=== PATIENT | male | born 1975 | race African-American/Black ===

== ENCOUNTER 2020-06-24 04:20 | Inpatient (IN) | payer BC, OTHER ==
--- OUTSIDE RECORDS SUMMARY | 2020-06-24 04:24 | XMS REPORT | Summary of Care ---
:1975 Author Organization [facility] - [facility] Address [address] [place] [address] Care Team Providers Name Role Phone Pcp, Patient Does Not Have A Primary Care Provider +[id number] Reason for Referral (Routine) Status Reason Specialty Diagnoses / Referred By Referred To Procedures Contact Contact New Request Pulmonary Disease Diagnoses COVID-19 virus infection Bruce Wilburn, Procedures Consult/Referral Post-COVID [facility] [address] [place] [address]. [address] [place] [phone] (Routine) Status Reason Specialty Diagnoses / Referred By Referred To Procedures Contact Contact Closed Internal Medicine Diagnoses COVID-19 virus infection Bruce Wilburn MD Procedures Discharge Follow-up: PCP PATIENT DOES NOT HAVE A PCP; 1 Week 301 [facility]. RT [address] [place] [id number] MRI/CAT Scan (STAT) Status Reason Specialty Diagnoses / Referred By Referred To Procedures Contact Contact New Request Diagnostic Diagnoses Positive D dimer Bruce Wilburn, Radiology Procedures CT CHEST PULMONARY ANGIOGRAM CT ANGIOGRAM CHEST [address] [place] [address]. RT [address] [place] [phone] Radiology Services (STAT) Status Reason Specialty Diagnoses / Referred By Referred To Procedures Contact Contact New Request Diagnostic Diagnoses Fever, unspecified fever cause Evelia Martinez Radiology Procedures XR CHEST 1 VW J, DO [address] [place] [address] Reason for Visit Reason Comments Shortness of Breath covid + Auth/Cert Status Reason Specialty Diagnoses / Referred By Referred To Procedures Contact Contact Emergency Medicine Diagnoses Shortness of breath [facility] Emergency Dept [address] [place] [address] Fax: Encounter Details Date Type Department Care Team Description 06/19/2020 - Hospital [facility] Intensive Care Sarwat Martinez DO [address] [place] [address] COVID-19 virus 06/20/2020 Encounter Unit Bruce Wilburn MD [address] [place] [address]. RT [address] [place] [address] infection [address] [place], [place] [id number] Allergies No Known Allergiesdocumented as of this encounter (statuses as of 06/20/2020) Medications Medication Sig Dispensed Refills Start Date End Date Status atorvastatin 40 mg Take 40 mg by 0 Active tablet mouth at bedtime. albuterol-ipratrop Inhale 2 4 g 0 06/20/2020 Active ium 20-100 Puffs 2 (two) 0 mcg/actuation times daily inhalerIndications for 10 days. : COVID-19 virus Can stop infection after 10 days ascorbic acid, Take 1 tablet 60 tablet 0 06/20/2020 Active vitamin C, 500 mg by mouth 2 0 tabletIndications: (two) times COVID-19 virus daily for 30 infection days. azithromycin 250 Take 1 tablet 1 Package 0 06/20/2020 Active mg by mouth tabletIndications: daily. Take COVID-19 virus 500 mg day 1, infection then 250 mg days 2 to 5. ergocalciferol, Take 1 4 capsule 1 06/27/2020 Act kimmie vitamin d2, 1,250 capsule by 0 mcg (50,000 unit) mouth weekly capsuleIndications for 60 days. : COVID-19 virus infection zinc sulfate 220 Take 1 30 capsule 0 06/20/2020 A ctive (50) mg capsule by 0 capsuleIndications mouth daily : COVID-19 virus for 30 days. infection dexAMETHasone 4 mg Decadron 8 mg 17 tablet 0 06/20/2020 Active tabletIndications: daily for 5 COVID-19 virus days. Then infection decadron 4 mg daily for 5 days. Then decadron 2 mg daily for 5 days. apixaban 2.5 mg Take 1 tablet 28 tablet 0 06/20/2020 Active tabletIndications: by mouth 2 COVID-19 (two) times daily. Stop after 2 weeks Indications: COVID-19 apixaban 2.5 mg Take 1 tablet 28 tablet 0 06/20/2020 Discontinued tabletIndications: by mouth 2 0 (Reorder) COVID-19 (two) times daily for 14 days. Stop after 2 weeks Indications: COVID-19 documented as of this encounter (statuses as of 06/20/2020) Active Problems Problem Noted Date Positive D dimer 06/20/2020 COVID-19 virus infection 06/19/2020 documented as of this encounter (statuses as of 06/20/2020) Social History Tobacco Use Types Packs/Day Years Used Date Never Assessed Sex Assigned at Date Recorded Not on file COVID-19 Exposure Response Date Recorded In the last month, have you been in contact with Yes 06/19/2020 4:45 PM CDT someone who was confirmed or suspected to have Coronavirus / COVID-19? documented as of this encounter Last Filed Vital Signs Vital Sign Reading Time Taken Comments Blood Pressure 123/80 06/20/2020 3:00 PM CDT Pulse 78 06/20/2020 3:00 PM CDT Temperature 37.2 C (99 F) 06/20/2020 12:00 PM CDT Respiratory Rate 20 06/20/2020 3:18 PM CDT Oxygen Saturation 98% 06/20/2020 3:18 PM CDT Inhaled Oxygen Concentration - - Weight 88.5 kg (195 lb 1.6 oz) 06/19/2020 6:57 PM CDT Height - - Body Mass Index - - documented in this encounter Discharge Summaries Bruce Wilburn MD - 06/20/2020 2:33 PM CDT [facility] - Hospitalist Discharge Summary ADMIT DATE: 06/19/2020 DISCHARGE DATE: 06/20/2020 ATTENDING MD: Bruce Wilburn MD PCP: PATIENT DOES NOT HAVE A PCP FINAL DIAGNOSIS: (the reason, after study, for admitting the patient to the hospital) COVID-19 virus infection HISTORY OF PRESENT ILLNESS 45 year-old male with pmh of hyperlipidemia who presents to the ED secondary to shortness of breath. About a week ago, patient initially had acute onset of lethargy, extreme fatigue, loss of smell/taste, and fever. The next day he was tested and found out that he had COVID-19. He continued to do supportive care but noticed symptoms nonproductive cough, body aches, intermittent wheezing, and headaches. He denies any rhinorrhea, sore throat. Due to the progressive shortness of breath, patient cameto the ED. HOSPITAL COURSE: Acute COVID infection and pneumonia, admitted to hospital and started on lovenox, steroids, abx, vitamin C, vitamin D and zinc. Patient feels better and not hypoxic on activity. Ok with discharge plan on eliquis 2.5 mg bid x 14 days. Patient at home takes lipitor for dyslipidemia. Recommended patient to f/u with PCP in 1 week Physical Exam NAD, lying comfortably Anicteric sclera, oral mucosa clear Good air entry b/l RRR, nl s1s2 Abd soft NT AAO, no gross deficits Spent greater than 35 mins on discharge including chart review, evaluating patient, discussing with patient and/or family, discussing with nursing and/or consultants, discharge summary, reconciling home medications and evaluating labs and imaging. SIGNIFICANT LAB/X-RAYS: LABS - reviewed pertinent labs as below: CBC BMP PT/INR WBC (10*3/L) Date Value 06/20/2020 4.19 (L) NA (mmol/L) Date Value 06/20/2020 135 No results found for: PT RBC (10*6/L) Date Value 06/20/2020 4.60 K (mmol/L) Date Value 06/20/2020 4.0 INR (no units) Date Value 06/19/2020 1.0 PLT (10*3/L) Date Value 06/20/2020 158 CALCIUM (mg/dL) Date Value 06/20/2020 8.4 (L) HGB (g/dL) Date Value 06/20/2020 13.1 CL (mmol/L) Date Value 06/20/2020 101 aPTT HCT (%) Date Value 06/20/2020 40.0 BUN (mg/dL) Date Value 06/20/2020 12 APTT Patient (Seconds) Date Value 06/19/2020 32 CREATININE (mg/dL) Date Value 06/20/2020 0.95 IMAGING - reviewed Hospital Encounter on 06/19/20 CT CHEST PULMONARY ANGIOGRAM Narrative Exam: CT CHEST PULMONARY ANGIOGRAM Clinical History: PE suspected, intermediate prob, positive D-dimer Comparison: Chest x-ray from June 19, 2020 Findings: The lower neck is unremarkable and the thyroid is symmetric. There is no evidence of supraclavicular, mediastinal, hilar, or axillary lymphadenopathy. A subcarinal lymph node measures 1.5 cm in short axis (4:112). Adequate opacification to evaluate for pulmonary embolism. No filling defects are seen in pulmonary artery branches to suggest presence of pulmonary embolism. The cardiac chambers and large vessels are within normal limits. Multifocal peripheral consolidative and groundglass opacities seen predominantly in the right lung are suggestive of Covid 19 pneumonia. The airways are patent. There is no evidence of pleural or pericardial effusion. No evidence of pneumothorax. Degenerative changes are seen in the spine without any suspicious focal lesions. Prominent mural thickening involving the lower esophagus (4:199 and 6:107). The visualized upper abdomen is unremarkable. Impression Impression: 1. Consolidative and groundglass peripheral opacities seen predominantly in the right lung suggest Covid 19 pneumonia. No evidence of pleural effusion or pneumothorax. Patient tested positive on June 14, 2020. 2. No evidence of pulmonary embolism. Nonspecific mural thickening of the lower esophagus. XR CHEST 1 VW Narrative PROCEDURE: CHEST, SINGLE VIEW . CLINICAL INDICATION: shortness of breath COMPARISON: None FINDINGS: Lungs: Ill-defined hazy streaky and patchy airspace opacities are seen throughout the lungs, more conspicuous on the right than. Pleura: No pleural effusion or pneumothorax is seen. The cardiomediastinal silhouette is normal in size. No acute bony abnormality. Impression Radiographic findings suspicious for atypical infection, including COVID-19 pneumonia. Disclaimer: Generally, the findings on chest imaging in COVID-19 are not specific, and overlap with other infections, including influenza, H1N1, SARS and MERS. According to the Centers for Disease Control (CDC) and recent statement of the [employer], viral testing remains the only specific method of diagnosis. Confirmation with the viral test is required, even if radiologic findings are suggestive of COVID-[address] Preliminary Report Dictated by Resident: Sukhwinder Jacinto I, Yolette Lamas MD., have reviewed this study and agree with the above report. FUNCTIONAL STATUS: fully ambulatory DISCHARGE CONDITION: fair COGNITIVE STATUS: cognitively intact DIET: regular ACTIVITY: as tolerated DISCHARGE MEDICATIONS: Current Discharge Medication List START taking these medications Details albuterol-ipratropium (COMBIVENT RESPIMAT) 2 Puffs Inhale 2 Puffs 2 (two) times daily. Can stop after 10 days Qty: 4 g, Refills: 0 Start date: 06/20/2020, End date: 06/30/2020 Associated Diagnoses: COVID-19 virus infection apixaban (ELIQUIS) 2.5 mg Take 2.5 mg by mouth 2 (two) times daily. Stop after 2 weeks Qty: 28 tablet, Refills: 0 Start date: 06/20/2020, End date: 07/04/2020 Associated Diagnoses: COVID-19 virus infection ascorbic acid (vitamin C) (VITAMIN C) 500 mg Take 500 mg by mouth 2 (two) times daily. Qty: 60 tablet, Refills: 0 Start date: 06/20/2020, End date: 07/20/2020 Associated Diagnoses: COVID-19 virus infection azithromycin (ZITHROMAX) 250 mg Take 250 mg by mouth daily. Take 500 mg day 1, then 250 mg days 2 to5. Qty: 1 Package, Refills: 0 Start date: 06/20/2020 Associated Diagnoses: COVID-19 virus infection dexAMETHasone 4 mg tablet Decadron 8 mg daily for 5 days. Then decadron 4 mg daily for 5 days. Then decadron 2 mg daily for 5 days. Qty: 17 tablet, Refills: 0 Start date: 06/20/2020 Associated Diagnoses: COVID-19 virus infection ergocalciferol (vitamin d2) (CALCIFEROL) 50,000 Units Take 50,000 Units by mouth weekly. Qty: 4 capsule, Refills: 1 Start date: 06/27/2020, End date: 08/26/2020 Associated Diagnoses: COVID-19 virus infection zinc sulfate (ORAZINC) 220 mg Take 220 mg by mouth daily. Qty: 30 capsule, Refills: 0 Start date: 06/20/2020, End date: 07/20/2020 Associated Diagnoses: COVID-19 virus infection CONTINUE these medications which have NOT CHANGED Details atorvastatin (LIPITOR) 40 mg Take 40 mg by mouth at bedtime. PATIENT EDUCATION PROVIDED: medications DISCHARGE: home self care documented in this encounter Discharge Instructions AttachmentsThe following attachments cannot be sent through Care Everywhere. Coronavirus Disease 2019, Caring for Yourself and Others (Maldivian)Albuterol inhalation aerosol (Maldivian)Ergocalciferol, Vitamin D2 tablets or capsules (Maldivian)Ascorbic Acid, Vitamin C tablet (Maldivian)Azithromycin tablets (Maldivian) Zinc Salts tablets or capsules (Maldivian)Dexamethasone tablets (Maldivian)Apixaban oral tablets (Maldivian)documented in this encounter Progress Notes Francisco Ziegler RN - 06/20/2020 4:34 PM CDT Care Management Discharge Disposition Note (DCDN) 5-2-1 Interventions: Clear discharge plan 5-2-1 Providers: Geotechnical Operating Engineer/Cook Apprentice 5-2-1 Patient Capacity Improvements: Avoidance of adverse events/readmission Discharge Plan for ongoing care and services: Patient Choice completed for referred services: Discussed with patient/patients family involved in decision making: Patient or family caregiver understands, and agrees with discharge plan. Discharge Plan: DME location: Other DME location: Durable Medical Equipment: Home Health location: Discharge location(s): Community resources/referrals made or provided to patient: Resources/Referrals: Mental Status: Alert & Oriented to Person,Place & Time Psychosocial issues and/or concerns resulting in patient being a high risk for re-admission: Manage ADL indepentdly: Discussed with patient/patients family involved in decision making: Primary Family/Support Person Name and Phone Number: Living Arrangement: Home Other living arrangement: Address of living arrangement: [address] [place] [address] Funding Resources: Commercial [facility] patient been [facility] Nursing informed of discharge plan: CHP referral sent? CM medication request completed (if appropriate): PCP: Transportation: Private Vehicle Prior authorization obtained for ambulance: Authorization number: CPT code: Discharge Medications Will the patient be able to obtain his medications? Does the patient have transportation to to obtain the prescription medications? CM Medication Request completed (if appropriate): Name of RN informed: Dian Expected discharge date: 06/20/2020 Time: Morning [10] Additional Information: CM/SW Name & Contact number: Francisco Ziegler RN Ph. Francisco Ziegler RN, BSN [facility] Geotechnical Operating Engineer O [phone] The following information has been provided to the facility noted above: reason for the patient discharge or transfer; patients physical and psychosocial status; summary of care, treatment, servicesprovided to patient; and the patient progress toward goals. Francisco Franco RN - 06/20/2020 3:18 PM CDTPt provided w/ Eliquis free 30 day coupon and $10 copay card. Francisco Ziegler RN, BSN [facility] Geotechnical Operating Engineer O [phone] Denise Scott LMSW - 06/20/2020 11:24 AM CDTSummary: Inpatient Scheduling RETAIL SERVICE TECHNICIAN spoke with patient prior to discharge to assist with scheduling hospital follow up appointments. Pt reports that he is followed by [facility] and doesn't really have one particular doctor. Pt reports that their clinic runs in a "pool" and depending on what the need is, is who they will put thepatient with to see. ALISTAIR discussed with patient that [facility] is recommending that he follow up with Primary Care within a week of his discharge which would most likely be via TeleHealth due to COVID status. Pt reports he will contact the clinic and get the appointment scheduled. Declines assistance in scheduling at this time. Will document in referral once it is made available. Denise Gutierrez LMSW Cook Apprentice - Community [facility] Out[facility] Bianca Ramos - 7th floor Office: [phone] (Not for patient use) [email or web address] Feliciano Rai RT - 06/20/2020 10:36 AM CDTEXERTION TEST O2 Saturation at Rest on Room Air = 96% O2 Saturation being Exerted on Room Air = 96% Francisco Franco RN - 06/20/2020 9:27 AM CDTCare Management Social Functional Assessment Patient Name: Jaydon Woodard Age: [age] year old Sex: male Previous admit date: N/A Current diagnosis and co-morbidities: COVID-19 Virus infection Readmission Questions: Was patient discharged from any acute care hospital within the last 30 days: No Social Functional Assessment: Primary language spoken/preferred: Maldivian Mental Status: Alert & Oriented to Person,Place & Time Information given by: Self Patient's support system: Spouse Name and number of support system: MISSY WOODARD spouse [phone] Primary Tugboat Dispatcher: Spouse MPOA: Same as support system Living Arrangement: Home Address of living arrangement : [address] [place] [address] Persons living in home: Same as support system Barriers to returning home: None Baseline functional status- ambulation: Independent Functional status-baseline personal care: Independent Baseline functional status- driving: Independent Baseline functional status- grocery shopping: Independent Functional status-baseline housekeeping: Independent Functional status-baseline meal prep: Independent Current functional status same as prior: Yes Do you have a PCP?: Yes Name of PCP: noah garcia [facility] Agency: No Provider Services: No DME Company: No Equipment: None Hemodialysis: No Funding Resources: Commercial Prescription coverage plan: Commercial Pharmacy where meds are filled: ([facility]) Anticipated services prior to disharge: Continue Medical Eval Expected mode of discharge transportation: Same as support system Additional info required for discharge planning: Pending medical evaluation Recommended discharge plan: Home SFA Complete: Social Functional Assessment complete: Yes Alcohol Use Screening (AUDIT-C) How often do you have a drink containing alcohol?: Never SCORE: 0 Role of Care Management explained. Yes Any issues or concerns with obtaining/affording your medications at home: no. Are you or your support system able to corn picker medications at discharge: yes. Describe: Francisco Ziegler RN, BSN [facility] ADC Geotechnical Operating Engineer O [phone] . documented in this encounter H&P Notes Marley Basilio MD - 06/19/2020 8:34 PM CDT MEDICINE ADC ADMIT H&P Date of Service: 06/19/2020 CHIEF COMPLAINT: shortness of breath History of Present Illness 45 year-old male with pmh of hyperlipidemia who presents to the ED secondary to shortness of breath. About a week ago, patient initially had acute onset of lethargy, extreme fatigue, loss of smell/taste, and fever. The next day he was tested and found out that he had COVID-19. He continued to do supportive care but noticed symptoms nonproductive cough, body aches, intermittent wheezing, and headaches. He denies any rhinorrhea, sore throat. Due to the progressive shortness of breath, patient cameto the ED. PAST MEDICAL HISTORY 1. HLD 2. Childhood asthma Past Surgical History 1. Right eye surgery s/p prosthesis Past Family History Mom (alive, 63): Diabetes Dad (, 50s): unknown ALLERGIES No Known Allergies MEDICATIONS No current facility-administered medications on file prior to encounter. Current Outpatient Medications on File Prior to Encounter Medication Sig Dispense Refill atorvastatin 40 mg tablet Take 40 mg by mouth at bedtime. SOCIAL HISTORY Social History Socioeconomic History Marital status: Spouse name: Not on file Number of children: Not on file Years of education: Not on file Highest education level: Not on file Occupational History Not on file Social Needs Financial resource strain: Not on file Food insecurity Worry: Not on file Inability: Not on file Transportation needs Medical: Not on file Non-medical: Not on file Tobacco Use Smoking status: Not on file Substance and Sexual Activity Alcohol use: Not on file Drug use: Not on file Sexual activity: Not on file Lifestyle Physical activity Days per week: Not on file Minutes per session: Not on file Stress: Not on file Relationships Social connections Talks on phone: Not on file Gets together: Not on file Attends mandaen service: Not on file Active member of club or organization: Not on file Attends meetings of clubs or organizations: Not on file Relationship status: Not on file Intimate partner violence Fear of current or ex partner: Not on file Emotionally abused: Not on file Physically abused: Not on file Forced sexual activity: Not on file Other Topics Concern Not on file Social History Narrative Not on file Review of Systems Constitutional: Positive for chills, fatigue and fever. Negative for activity change, appetite change, diaphoresis and unexpected weight change. HENT: Negative. Eyes: Positive for visual disturbance (right eye). Respiratory: Positive for cough, chest tightness and shortness of breath. Negative for apnea, choking, wheezing and stridor. Breasts: Negative. Cardiovascular: Negative. Gastrointestinal: Negative. Genitourinary: Negative. Musculoskeletal: Positive for myalgias. Negative for arthralgias, back pain, gait problem and joint swelling. Skin: Negative. Neurological: Positive for weakness and headaches. Negative for dizziness, tremors, seizures, syncope, facial asymmetry, speech difficulty, light- headedness and numbness. Psychiatric/Behavioral: Negative. Endocrine: Endocrine negative PHYSICAL EXAMINATION Vitals: 06/19/20 1800 06/19/20 1827 06/19/20 1857 06/19/20 1900 BP: 118/78 107/68 Pulse: 100 86 Resp: 20 25 Temp: 38.7 C (101.6 F) 36.3 C (97.3 F) TempSrc: Oral SpO2: 95% 96% Weight: 88.5 kg (195 lb 1.6 oz) Physical Exam Constitutional: He is oriented to person, place, and time. He appears well- developed and well-nourished. No distress. HENT: Head: Normocephalic and atraumatic. Right Ear: External ear normal. Left Ear: External ear normal. Mouth/Throat: No oropharyngeal exudate. Eyes: Pupils are equal, round, and reactive to light. Conjunctivae and EOM are normal. No scleral icterus. Neck: Normal range of motion. Cardiovascular: Normal rate and regular rhythm. Pulmonary/Chest: Effort normal and breath sounds normal. No respiratory distress. He exhibits tenderness. Abdominal: Soft. He exhibits no distension. There is no guarding. Musculoskeletal: Normal range of motion. General: No edema. Neurological: He is alert and oriented to person, place, and time. Skin: Skin is warm and dry. No rash noted. No erythema. No pallor. Psychiatric: He has a normal mood and affect. His behavior is normal. Judgment and thought content normal. LABS - reviewed pertinent labs as below: Reviewed IMAGING - reviewed, pertinent results as below: PROCEDURE: CHEST, SINGLE VIEW . CLINICAL INDICATION: shortness of breath COMPARISON: None FINDINGS: Lungs: Ill-defined hazy streaky and patchy airspace opacities are seen throughout the lungs, more conspicuous on the right than. Pleura: No pleural effusion or pneumothorax is seen. The cardiomediastinal silhouette is normal in size. No acute bony abnormality. IMPRESSION Radiographic findings suspicious for atypical infection, including COVID-19 pneumonia. Disclaimer: Generally, the findings on chest imaging in COVID-19 are not specific, and overlap with other infections, including influenza, H1N1, SARS and MERS. According to the Centers for Disease Control (CDC) and recent statement of the [employer], viral testing remains the only specific method of diagnosis. Confirmation with the viral test is required, even if radiologic findings are suggestive of COVID-[address] Preliminary Report Dictated by Resident: Sukhwinder Jacinto I, Yolette Lamas MD., have reviewed this study and agree with the above report. ASSESSMENT/PLAN Jaydon Woodard is a 45 year old male with PMH as listed above, admitted to the hospital with: 1. Acute respiratory distress: likely secondary to COVID-19 infection. -- Oxygen supplementation -- Treat underlying condition 2. COVID pneumonia: -- Oxygen supplementation as needed -- Will order dexamethasone -- Will order supplement ascorbic acid, zinc -- Continue antibiotics for possible superimposed pneumonia (awaiting procalcitonin) -- Coagulable work-up ordered in order to evaluate for possible coagulability. Added weight based lovenox due to elevated d dimer. -- Will consult ID for possible use of remdesivir -- Supportive therapy (eg, antitussive agent, bronchodilator inhaler) -- Will encourage proning -- Will order incentive spirometry -- COVID isolation precaution 3. Hyperlipidemia: -- Will resume outpatient lipid medication Prophylaxis: DVT- enoxaparin Code Status: addressed: FC documented in this encounter ED Notes Nan Jiménez RN - 06/19/2020 4:37 PM CDTPatient reports he tested + for covid 06/15/2020; states he is now becoming more SOB. Patient walked in place for 45 seconds and O2 sats decreased to 84%. Evelia Posada, - 06/19/2020 4:32 PM CDT [facility] Emergency Department Note Patient Name: Jaydon Woodard Date of : 1975 45 year old male Treatment Room: [facility] Primary Care Physician: PATIENT DOES NOT HAVE A PCP Patient Escorted by: Self [9] Mode of Arrival: Personal means [1] EMS Treatment Prior to ED Arrival: Travel and Exposure Screening: Symptoms Does patient have any of these symptoms?: (not recorded) Exposure Screening Has patient had contact with someone with a communicable disease in the last month?: (not recorded) Diseases exposed to:: (not recorded) Is Patient ?: (not recorded) Exposure Date: (not recorded) Chief Complaint: Chief Complaint Patient presents with Shortness of Breath covid + History of Present Illness: Patient presents for eval for cough and sob for several days. Started feeling bad on Thursday - today is Thursday. On went and had a covid test and was found to be positive on Thursday. Has been staying at home and quarantining since. No n/v. No diarrhea. 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 Does not smoke. No h/o asthma or dm. Does take cholesterol meds. No chest pain. Here for eval. Past Medical History/Immunizations: History reviewed. No pertinent past medical history. Tetanus received in last 5 years: Unknown Allergies: No Known Allergies Past Social History: Substance & Sexual Activity No substance use or sexual activity history on file. Past Surgical History: History reviewed. No pertinent surgical history. Review of Systems: Review of Systems Constitutional: Positive for fever. Negative for chills. Respiratory: Positive for cough and shortness of breath. Cardiovascular: Negative for chest pain. Gastrointestinal: Negative for abdominal pain, nausea and vomiting. Genitourinary: Negative for dysuria. Musculoskeletal: Positive for myalgias. Negative for neck pain and neck stiffness. Neurological: Negative for dizziness. Psychiatric/Behavioral: Negative for agitation. Endocrine: Negative for goiter. Physical Exam: ED Triage Vitals [06/19/20 1639] Weight 83.9 kg (185 lb) Actual or estimated Estimated by patient/family report Height BP (!) 138/94 Pulse 110 Resp 22 Temp 39.8 C (103.7 F) Temp source Oral SpO2 94 % Measured on Room air Physical Exam Vitals signs and nursing note reviewed. Constitutional: Appearance: Normal appearance. He is normal weight. HENT: Head: Normocephalic and atraumatic. Neck: Musculoskeletal: Normal range of motion and neck supple. Cardiovascular: Rate and Rhythm: Regular rhythm. Tachycardia present. Pulses: Normal pulses. Pulmonary: Effort: Pulmonary effort is normal. No respiratory distress. Breath sounds: No wheezing. Abdominal: General: Abdomen is flat. There is no distension. Palpations: There is no mass. Tenderness: There is no abdominal tenderness. There is no guarding. Musculoskeletal: Normal range of motion. Skin: General: Skin is warm and dry. Neurological: General: No focal deficit present. Mental Status: He is alert. Radiology: Hospital Encounter on 06/19/20 XR CHEST 1 VW Narrative PROCEDURE: CHEST, SINGLE VIEW . CLINICAL INDICATION: shortness of breath COMPARISON: None FINDINGS: Lungs: Ill-defined hazy streaky and patchy airspace opacities are seen throughout the lungs, more conspicuous on the right than. Pleura: No pleural effusion or pneumothorax is seen. The cardiomediastinal silhouette is normal in size. No acute bony abnormality. Impression Radiographic findings suspicious for atypical infection, including COVID-19 pneumonia. Disclaimer: Generally, the findings on chest imaging in COVID-19 are not specific, and overlap with other infections, including influenza, H1N1, SARS and MERS. According to the Centers for Disease Control (CDC) and recent statement of the [employer], viral testing remains the only specific method of diagnosis. Confirmation with the viral test is required, even if radiologic findings are suggestive of COVID-[address]. Preliminary Report Dictated by Resident: Sukhwinder Jacinto I, Yolette Lamas MD., have reviewed this study and agree with the above report. Lab Results (24h): Recent Results (from the past 24 hour(s)) TROPONIN I Collection Time: 06/19/20 4:49 PM Result Value Ref Range TROPONIN I <0.012 <=0.034 ng/mL COMP. METABOLIC PANEL ([id number]) Collection Time: 06/19/20 4:49 PM Result Value Ref Range NA 135 135 - 145 mmol/L K 4.1 3.5 - 5.0 mmol/L CL 95 (L) 98 - 108 mmol/L CO2 TOTAL 28 23 - 31 mmol/L AGAP 12 2 - 16 BUN 13 7 - 23 mg/dL GLUCOSE 114 (H) 70 - 110 mg/dL CREATININE 1.20 0.60 - 1.25 mg/dL TOTAL BILI 0.7 0.1 - 1.1 mg/dL CALCIUM 9.4 8.6 - 10.6 mg/dL T PROTEIN 8.4 (H) 6.3 - 8.2 g/dL ALBUMIN 4.6 3.5 - 5.0 g/dL ALK PHOS 65 34 - 122 U/L ALTv 46 5 - 50 U/L AST(SGOT) 50 (H) 13 - 40 U/L eGFR Calculation (Non-) 64.9 mL/min/1.73m2 eGFR Calculation () 78.7 mL/min/1.73m2 LIPASE, SERUM Collection Time: 06/19/20 4:49 PM Result Value Ref Range LIPASE 155 0 - 220 U/L CBC WITH DIFF Collection Time: 06/19/20 4:49 PM Result Value Ref Range WBC 4.66 4.20 - 10.70 10*3/L RBC 5.27 4.26 - 5.52 10*6/L HGB 14.8 12.2 - 16.4 g/dL HCT 45.7 38.4 - 49.3 % MCV 86.7 81.7 - 95.6 fL MCH 28.1 26.1 - 32.7 pg MCHC 32.4 31.2 - 35.0 g/dL RDW-SD 38.7 38.5 - 51.6 fL RDW-CV 12.1 12.1 - 15.4 % PLT 156 150 - 328 10*3/L MPV 10.8 9.8 - 13.0 fL NRBC/100 WBC 0.0 0.0 - 10.0 /100 WBCs NRBC x10^3 <0.01 10*3/L GRAN MAT (NEUT) % 67.6 % IMM GRAN % 0.20 % LYMPH % 26.4 % MONO % 5.8 % EOS % 0.0 % BASO % 0.0 % GRAN MAT x10^3(ANC) 3.15 1.99 - 6.95 10*3/uL IMM GRAN x10^3 <0.03 0.00 - 0.06 10*3/uL LYMPH x10^3 1.23 1.09 - 3.23 10*3/uL MONO x10^3 0.27 (L) 0.36 - 1.02 10*3/uL EOS x10^3 <0.03 (L) 0.06 - 0.53 10*3/uL BASO x10^3 <0.03 0.01 - 0.09 10*3/uL EKG: Nsr, no stemi, QTc 437, rate 96 Orders and Treatments: Orders Placed This Encounter Procedures XR CHEST 1 VW TROPONIN I COMP. METABOLIC PANEL ([id number]) LIPASE, SERUM CBC WITH DIFF Orders Placed This Encounter Medications acetaminophen (TYLENOL) tablet 1,000 mg NaCl 0.9% (NS) bolus infusion 1,000 mL ED COURSE patient presents for eval for cough, body aches and sob getting worse since Thursday - today is Thursday. No chest pain. Subjective fevers. Had positive covid test on (results on Thursday). Poor appetite today. Does not smoke. No h/o asthma. Febrile upon arrival. Slight tachycardic. Hypoxic with ambulation at 84%. Lungs clear. Is known covid +. Will obtain CXR and ekg. Will check labs. Will give IV fluids and Tylenol. Will need admission later on. 1800 - labs ok. CXR shows covid. Will admit for continued management. MDM: Coding Scoring Tools: No data recorded Diagnosis/Impression: ICD-10-CM ICD-9-CM 1. Fever, unspecified fever cause R50.9 780.60 Disposition/Condition: ED Disposition ED Disposition Condition Comment Admit - Inpatient Is this patient COVID positive or a patient under investigation (PUI)?: Yes Treatment Team: [facility] [[id number]] Primary reason for admission: COVID-19 virus infection [[id number]] Is (or was) this a planned re-admission?: No My concerns are:: hypoxia My concerns are:: need for IV therapies My concerns are:: risk of mortality My concerns are:: risk of morbidity My concerns are:: respiratory insufficiency The risks to the patient are: morbidity or mortality in the short term Expected length of stay: At least 2 midnights Expected discharge disposition: Home Self Care Certification: I certify the inpatient services are medically necessary and in accordance with Medicare regulations. Discharge Medications: Patient's Medications No medications on file Follow-up: Electronically signed by: Evelia Martinez DO 06/19/2020 4:48 PM documented in this encounter Miscellaneous Notes Nursing Note - Meena Simmons RN - 06/20/2020 4:52 PM CDTPt is discharged home. All discharge and follow up instructions given, and explained. Pt verbalized the understanding of instructions. Prescriptions given to the patient.Pt left in wheelchair accompanied by Nurse social and human services assistant. Pt will be picked up by his . Pt took all his belonging. IV removed, and tel removed. are Plan - Dian Wynn RN - 06/20/2020 3:08 PM CDT Problem: Discharge Planning Goal: Absence of venous thromboembolism Outcome: Adequate for discharge Goal: Adequate for discharge Outcome: Adequate for discharge Goal: Effective communication Outcome: Adequate for discharge Problem: Pain Goal: Control of pain at or below patient's documented comfort goal Outcome: Adequate for discharge Goal: Reduction in pain sensation Outcome: Adequate for discharge Problem: Respiratory Function - Impaired Goal: Able to cough effectively Outcome: Adequate for discharge Goal: Adequate oxygenation Outcome: Adequate for discharge Goal: Adequate work of breathing Outcome: Adequate for discharge Goal: Patent airway Outcome: Adequate for discharge are Plan - Chelle Beckford RN - 06/20/2020 6:17 AM CDTInstruction given on Incentive Spirometer use, demonstrated proper use of device. D Nurse Note - Maria De Jesus Torres RN - 06/19/2020 6:35 PM CDTReport given to Trista WYNNE with ICU documented in this encounter Plan of Treatment Name Type Priority Associated Diagnoses Date/Ti me BLOOD CULTURE SCREEN LAB [facility] 020 10:51 PM CDT URINE CULTURE LAB Routine 06/20/2020 4: 30 PM CDT BLOOD CULTURE SCREEN LAB Routine 020 12:21 PM CDT Name Type Priority Associated Diagnoses Order S chedule BLOOD CULTURE SCREEN LAB [facility] fo r 1 Occurrences sta rting 06/19/2020 unti l 06/19/2020 URINE CULTURE LAB Routine ONCE for 1 Occurrences sta rting 06/19/2020 unti l 06/19/2020 EKG-12 LEAD ROUTINE HEART STATION Routine ONCE fo r 1 Occurrences sta rting 06/19/2020 unti l 06/19/2020 COMP. METABOLIC LAB Routine EVERY MORNIN G AT 0500 PANEL ([id number]) for 3 Days sta rting 06/20/2020 unti l 06/22/2020, 1 completed CBC WITH DIFF LAB Routine EVERY MORNING AT 0500 for 3 Days star ting 06/20/2020 unti l 06/22/2020, 1 completed ACUTE CARE VENOUS LAB Routine EVERY MORN ING AT 0500 BLOOD GAS for 1 Days star ting 06/20/2020 unti l 06/20/2020 BLOOD CULTURE SCREEN LAB Routine ONCE fo r 1 Occurrences sta rting 06/20/2020 unti l 06/20/2020 Health Maintenance Due Date Last Done Comments Depression Screening 1985 DTaP,Tdap,and Td Vaccines (1 - 02/20/1992 Tdap) INFLUENZA VACCINE (#1) 2020 Colorectal Cancer Screening 2023 PNEUMOCOCCAL 0-64 YEARS COMBINED Aged Out No longer eligible based on SERIES patient's age to complete this topic documented as of this encounter Procedures Procedure Name Priority Date/Time Associated Comments Diagnosis URINALYSIS Routine 06/20/2020 4:30 Results for this PM CDT procedure are i n the results section. BLOOD CULTURE SCREEN Routine 06/20/2020 12:21 PM CDT AC PANEL 21 + LACTIC STAT 06/20/2020 12:20 Res ults for this ACID PM CDT procedure are i n the results section. CT CHEST PULMONARY STAT 06/20/2020 10:13 Positive D dimer R esults for this ANGIOGRAM AM CDT procedure are i n the results section. N-TERMINAL PRO-BNP Routine 06/20/2020 3:27 Resul ts for this AM CDT procedure are i n the results section. CBC WITH DIFF Routine 06/20/2020 3:27 Results fo r this AM CDT procedure are i n the results section. COMP. METABOLIC PANEL Routine 06/20/2020 3:27 Re sults for this ([id number]) AM CDT procedure are i n the results section. TROPONIN I Routine 06/20/2020 3:27 Results for this AM CDT procedure are i n the results section. BLOOD CULTURE SCREEN [facility] 06/19/2020 10:51 PM CDT PROCALCITONIN [facility] 06/19/2020 10:50 Results fo r this PM CDT procedure are i n the results section. C-REACTIVE PROTEIN [facility] 06/19/2020 10:50 Resul ts for this PM CDT procedure are i n the results section. LACTATE DEHYDROGENASE [facility] 06/19/2020 10:50 Re sults for this PM CDT procedure are i n the results section. ACUTE CARE VENOUS [facility] 06/19/2020 10:49 Result s for this BLOOD GAS PM CDT procedure are i n the results section. ACTIVATED PARTIAL [facility] 06/19/2020 6:14 Result s for this THRMPLAS ERIK PM CDT procedure are i n the results section. D-DIMER [facility] 06/19/2020 6:14 Results for this PM CDT procedure are i n the results section. PROTHROMBIN TIME / [facility] 06/19/2020 6:14 Resul ts for this INR PM CDT procedure are i n the results section. XR CHEST 1 VW STAT 06/19/2020 5:03 Fever, unspecified Resu lts for this PM CDT fever cause procedure are i n the results section. N-TERMINAL PRO-BNP Add-on 06/19/2020 4:49 Resul ts for this PM CDT procedure are i n the results section. GLYCOSYLATED [facility] Add-On 06/19/2020 4:49 Results for this HEMOGLOBIN (A1C) PM CDT procedure a re in the results section. CBC WITH DIFF STAT 06/19/2020 4:49 Fever, unspecified Resu lts for this PM CDT fever cause procedure are i n the results section. SEDIMENTATION RATE [facility] Add-On 06/19/2020 4:49 Resul ts for this PM CDT procedure are i n the results section. LIPID PANEL [facility] Add-On 06/19/2020 4:49 Results for this ([id number])(TOTAL PM CDT procedure are in CHOLESTEROL, the results TRIGLYCERIDES, HDL) section. COMP. METABOLIC PANEL STAT 06/19/2020 4:49 Fever, unspecif ied Results for this ([id number]) PM CDT fever cause procedure are i n the results section. THYROID STIMULATING [facility] Add-On 06/19/2020 4:49 Resu lts for this HORMONE PM CDT procedure are i n the results section. TROPONIN I STAT 06/19/2020 4:49 Fever, unspecified Resul ts for this PM CDT fever cause procedure are i n the results section. FERRITIN SERUM [facility] Add-On 06/19/2020 4:49 Results f or this PM CDT procedure are i n the results section. MAGNESIUM [facility] Add-On 06/19/2020 4:49 Results for this PM CDT procedure are i n the results section. LIPASE STAT 06/19/2020 4:49 Fever, unspecified Resul ts for this PM CDT fever cause procedure are i n the results section. URIC ACID [facility] Add-On 06/19/2020 4:49 Results for this PM CDT procedure are i n the results section. CREATINE KINASE Add-on 06/19/2020 4:49 Results for this PM CDT procedure are i n the results section. PHOSPHORUS [facility] Add-On 06/19/2020 4:49 Results for this PM CDT procedure are i n the results section. EKG-12 LEAD STAT 06/19/2020 4:47 PM CDT CONSENT/REFUSAL FOR Routine 06/19/2020 4:31 DIAGNOSIS AND PM CDT TREATMENT NOTICE OF PRIVACY Routine 06/19/2020 4:30 PRACTICES PM CDT documented in this encounter Results URINALYSIS (06/20/2020 4:30 PM CDT) Pathologist Sig nature APPEARANCE Clear Clear [facility] COLOR Yellow Yellow [facility] PH 6.0 4.8 - 8.0 [facility] SP GRAVITY 1.042 (H) 1.003 - 1.030 [facility] GLU U QUAL Normal Normal [facility] BLOOD Negative Negative [facility] KETONES Negative Negative [facility] PROTEIN 30 mg/dL (A) Negative [facility] UROBILIN Normal Normal [facility] BILIRUBIN Negative Negative [facility] NITRITE Negative Negative [facility] LEUK DEENA Negative Negative [facility] RBC/HPF 4 (H) 0 - 3 HPF [facility] WBC/HPF 1 0 - 5 HPF [facility] BACTERIA Negative Negative [facility] Specimen Urine - URINE, CLEAN CATCH Performing Organization Address [facility] Phone Number [facility] CLIA: [id number] [place] [address] AC PANEL 21 + LACTIC ACID (06/20/2020 12:20 PM CDT) [facility] PH 7.38 7.32 - 7.42 [facility] PCO2 MARCI 39 (L) 41 - 51 mmHg [facility] PO2 MARCI 28 25 - 40 mmHg [facility] HCO3 MARCI 22 (L) 24 - 28 mEq/L [facility] AC VBE(BEAKER) -2.6 mEq/L [facility] THB MARCI 14.7 13.5 - 18.0 g/dL [facility] %O2HB MARCI 53.8 52.0 - 63.0 % [facility] %COHB MARCI 1.8 (H) 0.0 - 1.5 % [facility] %METHB MARCI 0.0 (L) 0.4 - 1.5 % [facility] VOL%O2 MARCI 11.1 6.0 - 12.0 % [facility] NA 136 135 - 145 mmol/L [facility] K+ 3.9 3.5 - 5.0 mmol/L [facility] AC CA IONZ 4.10 (L) 4.50 - 5.30 mg/dL [facility] GLUCOSE 123 (H) 70 - 110 mg/dL [facility] LACTIC ACID 2.18 mmol/L [facility] Specimen Blood - ARM, LEFT Performing Organization Address [facility] Phone Number [facility] CLIA: [id number] [place] [id number] LABORATORY [address] [facility] [address] CHEST PULMONARY ANGIOGRAM (06/20/2020 10:13 AM CDT) Specimen Impressions Performed At Impression: PACS/VR/DOSE 1. Consolidative and groundglass peripheral opacitie s seen predominantly in the right lung suggest Covid 19 pneum onia. No evidence of pleural effusion or pneumothorax. Patient tested positive on June 14, 2020. 2. No evidence of pulmonary embolism. Nonspecific mural thickening of the lower esophagus. Narrative Performed At Exam: CT CHEST PULMONARY ANGIOGRAM PACS/VR/DOSE Clinical History: PE suspected, intermed iate prob, positive D-dimer Comparison: Chest x-ray from June 19, 2020 Findings: The lower neck is unremarkable and the t hyroid is symmetric. There is no evidence of supraclavicular, mediastinal , hilar, or axillary lymphadenopathy. A subcarinal lymph node measures 1.5 cm in short axis (4:112). Adequate opacification to evaluate for p ulmonary embolism. No filling defects are seen in pulmonary artery bra nches to suggest presence of pulmonary embolism. The cardiac chambers and large vessels are within normal limits. Multifocal peripheral consolidative and groundglass opacities seen predominantly in the right lung are suggestive of Covi d 19 pneumonia. The airways are patent. There is no evidence of pleural or pericardial effusion. No evidence of pneumothorax. Degenerative changes are seen in the spi ne without any suspicious focal lesions. Prominent mural thickening invo lving the lower esophagus (4:199 and 6:107). The visualized upper abdomen is unremarkable. Procedure Note [facility], Radiant Results Inft User - 2019 11:11 AM CDT Exam: CT CHEST PULMONARY ANGIOGRAM Clinical History: PE suspected, intermed iate prob, positive D-dimer Comparison: Chest x-ray from June 19, 2020 Findings: The lower neck is unremarkable and the t hyroid is symmetric. There is no evidence of supraclavicular, mediastinal , hilar, or axillary lymphadenopathy. A subcarinal lymph node measures 1.5 cm in short axis (4:112). Adequate opacification to evaluate for p ulmonary embolism. No filling defects are seen in pulmonary artery bra nches to suggest presence of pulmonary embolism. The cardiac chambers and large vessels are within normal limits. Multifocal peripheral consolidative and groundglass opacities seen predominantly in the right lung are sugg estive of Covid 19 pneumonia. The airways are patent. There is no evidence of pleural or pericardial effusion. No evidence of pneumothorax. Degenerative changes are seen in the spi ne without any suspicious focal lesions. Prominent mural thickening invo lving the lower esophagus (4:199 and 6:107). The visualized upper abdomen is unremarkable. IMPRESSION Impression: 1. Consolidative and groundglass periph eral opacities seen predominantly in the right lung suggest Covid 19 pneum onia. No evidence of pleural effusion or pneumothorax. Patient tested positive on June 14, 2020. 2. No evidence of pulmonary embolism. Nonspecific mural thickening of the lower esophagus. Performing Organization Address City/[facility]/Zipcode Phone Number PACS/VR/DOSE N-TERMINAL PRO-BNP (06/20/2020 3:27 AM CDT) Pathologist Sig nature NT-proBNP 29 <=125 pg/mL [facility] Specimen Blood - VENOUS Narrative Performed At Biotin has been reported to cause a negative [facility] bias, interpret results relative to patient's use of biotin. Performing Organization Address City/State/Zipcode Phone Number [facility] CLIA: [id number] [place] [address] TROPONIN I (06/20/2020 3:27 AM CDT) Pathologist Sig nature TROPONIN I <0.012 <=0.034 ng/mL [facility] Specimen Blood - VENOUS Narrative Performed At Equal or Less than 0.034 ng/ml---Normal [facility] Note: Cardiac troponin begins to rise 3-4 hours after the onset of ischemia. Repeat in 4-6 hours if the sample was drawn within 3-4 hours of the onset of the symptom and found normal. Between 0.035 and 0.120 ng/mL--- Borderline. Questionable myocardial injury or necros is Note: Serial measurement may be necessary to confirm or exclude the diagnosis of myocardial injury or necrosis; Clinical correlation (symptoms, EKGs, imaging studies, and others) required; Repeat in 4-6 hours if clinically indicated. Equal or Higher than 0.121 ng/mL---Abnormal. Myocardial Injury or Necrosis Likely Biotin has been reported to cause a negative bias, interpret results relative to patient's use of biotin. Performing Organization Address City/State/Zipcode Phone Number [facility] CLIA: [id number] [place] [address] CBC WITH DIFF (06/20/2020 3:27 AM CDT) [facility] WBC 4.19 (L) 4.20 - 10.70 [facility] 10*3/L H[facility]ITAL [facility] RBC 4.60 4.26 - 5.52 [facility] 10*6/L [facility] HGB 13.1 12.2 - 16.4 [facility] g/dL [facility] HCT 40.0 38.4 - 49.3 % [facility] MCV 87.0 81.7 - 95.6 fL [facility] MCH 28.5 26.1 - 32.7 pg [facility] MCHC 32.8 31.2 - 35.0 [facility] g/dL [facility] RDW-SD 39.1 38.5 - 51.6 fL [facility] RDW-CV 12.3 12.1 - 15.4 % [facility] PLT 158 150 - 328 [facility] 10*3/L [facility] MPV 11.3 9.8 - 13.0 fL [facility] NRBC/100 WBC 0.0 0.0 - 10.0 /100 [facility] WBCs [facility] NRBC x10^3 <0.01 10*3/L [facility] GRAN MAT (NEUT) % 80.5 % [facility] IMM GRAN % 0.20 % [facility] LYMPH % 16.2 % [facility] MONO % 2.9 % [facility] EOS % 0.0 % [facility] BASO % 0.2 % [facility] GRAN MAT x10^3(ANC) 3.37 1.99 - 6.95 [facility] 10*3/uL [facility] IMM GRAN x10^3 <0.03 0.00 - 0.06 [facility] 10*3/uL [facility]ITAL [facility] LYMPH x10^3 0.68 (L) 1.09 - 3.23 [facility] 10*3/uL [facility]ITAL [facility] MONO x10^3 0.12 (L) 0.36 - 1.02 [facility] 10*3/uL [facility] EOS x10^3 <0.03 (L) 0.06 - 0.53 [facility] 10*3/uL [facility] BASO x10^3 <0.03 0.01 - 0.09 [facility] 10*3/uL [facility] Specimen Blood - VENOUS Performing Organization Address City/State/Zipcode Phone Number [facility] CLIA: [id number] [place] [address] COMP. METABOLIC PANEL ([id number]) (06/20/2020 3:27 AM CDT) [facility] NA 135 135 - 145 [facility] mmol/L [facility] K 4.0 3.5 - 5.0 [facility] mmol/L [facility] CL 101 98 - 108 mmol/L [facility] CO2 TOTAL 26 23 - 31 mmol/L [facility] AGAP 8 2 - 16 [facility] BUN 12 7 - 23 mg/dL [facility] GLUCOSE 120 (H) 70 - 110 mg/dL [facility] CREATININE 0.95 0.60 - 1.25 [facility] mg/dL [facility] TOTAL BILI 0.5 0.1 - 1.1 mg/dL [facility] CALCIUM 8.4 (L) 8.6 - 10.6 [facility] mg/dL [facility] T PROTEIN 6.8 6.3 - 8.2 g/dL [facility] ALBUMIN 3.8 3.5 - 5.0 g/dL [facility] ALK PHOS 52 34 - 122 U/L [facility] ALTv 35 5 - 50 U/L [facility] AST(SGOT) 46 (H) 13 - 40 U/L [facility] eGFR Calculation 85.0 mL/min/1.73m2 [facility] (Non-[facility] [place] LABORATORY [place]) eGFR Calculation 103.0 mL/min/1.73m2 [facility] () [facility] Specimen Blood - VENOUS Narrative Performed At Association of Glomerular Filtration Rate (GFR) [facility] and Staging of Kidney Disease* + + +- + | GFR (mL/min/1.73 m2) | With Kidney Damage | Without Kidney Damage + + +- + | >90 | Stage one | Normal + + +- + | 60-89 | Stage two | Decreased GFR + + +- + | 30-59 | Stage three | Stage three + + +- + | 15-29 | Stage four | Stage four + + +- + | <15 (or dialysis) | Stage five | Stage five + + +- + *Each stage assumes the associated GFR level has been in effect for at least three months. Stages 1 to 5, with or without kidney disease, indicate chronic kidney disease. Notes: Determination of stages one and two (with eGFR >59mL/min/1.73 m2) requires estimation of kidney damage for at least three months as defined by structural or functional abnormalities of the kidney, manifested by either: Pathological abnormalities or Markers of kidney damage (including abnormalities in the composition of the blood or urine or abnormalities in imaging tests). Performing Organization Address City/State/Zipcode Phone Number [facility] CLIA: [id number] [place] [address] LABORATORY [address] [facility] PROCALCITONIN (06/19/2020 10:50 PM CDT) Pathologist Sig nature Procalcitonin 0.04 <0.07 ng/mL [facility] Specimen Blood - VENOUS Narrative Performed At INTERPRETATION OF PROCALCITONIN RESULTS IN ADULTS >= 1 8 [facility] YEARS OF AGE Initiation and discontinuation of antibiotics on patie nts with suspected or confirmed Lower Respiratory Tract Infection in Adults >= 18 years of age. + + + +----- ------ + |Procalcitonin |Interpretation |Antibiotic |Considerations |ng/mL | |recommend ation | + + + +----- ------ + | <0.1 | Bacterial | Strongly | | | infection very | discouraged | Overruling: | | unlikely | | Clinically unstable + + + + H igh risk for adverse | <0.25 | Bacterial | Discouraged | outcome | | infection | | SEE IMPORTANT NOTE | | unlikely | | + + + +----- ------ + | >=0.25 | Bacterial | Encouraged | | | infection | | | | likely | | Consider treatment failure + + + + if l evels does not decrease | >0.5 | Bacterial | Strongly | appropriately | | infection very | encouraged | | | likely | | + + + +----- ------ + Discontinuation of antibiotics in high-acuity patients with suspected or confirmed sepsis in Adults >= 18 years of age. + + + +----- ------ + |Procalcitonin |Interpretation |Antibiotic |Considerations |ng/mL | |recommend ation | + + + +----- ------ + | <0.25 | Bacterial | Strongly | | | infection very | discouraged | Overruling: | | unlikely | | Clinically unstable + + + + H igh risk for adverse | <0.5 or drop | Bacterial | Discouraged | outcome | >80% from | infection | | SEE IMPORTANT NOTE | highest PCT | unlikely | | | level | | | + + + +----- ------ + | >=0.5 | Bacterial | Encouraged | | | infection | | | | likely | | Consider treatment failure + + + + if l evels does not decrease | >1.0 | Bacterial | Strongly | appropriately | | infection very | encouraged | | | likely | | + + + +----- ------ + Percentage of drop of Procalcitonin calculation for Discontinuation of antibiotics in high-acuity patients with suspected or confirmed sepsis in Adults >= 18 years of age. Procalcitonin highest{}-Procalcitonin current{} Delta Procalcitonin = x100% Procalcitonin current {} IMPORTANT NOTE: Procalcitonin may be elevated without bacterial infection by physiologic stress related to t rauma, timmons, chronic dialysis, metastatic cancer, surgery in the past seven days, malaria, some fungal infections, and some forms of vasculitis. The interpretation algorithm may not apply to patients with immunosuppression (equivalent o f >10 mg of prednisone daily), HIV with CD4 cell count < 350 cells/mm3, active malignancy on systemic chemotherapy, solid organ transplant or [facility], or hospital acquired pneumonia. Additionally, some cli nical trials of procalcitonin have excluded patients with sh ock requiring vasopressor use, acute respiratory failure requiring mechanical ventilation, or those with known lung abscess/empyema. For further information please refer to: [email or web address] Performing Organization Address City/[facility]/Zipcode Phone Number [facility] CLIA: [id number] [place] [address] [place] [address] C-REACTIVE PROTEIN (06/19/2020 10:50 PM CDT) Pathologist [facility] CRP 5.3 (H) <0.8 mg/dL [facility] Specimen Blood - VENOUS Performing Organization Address City/[facility]/Zipcode Phone Number [facility] CLIA: [id number] [place] [address] [place] [address] LACTATE DEHYDROGENASE (06/19/2020 10:50 PM CDT) Pathologist [facility] nature LDH 989 (H)Comment: 300 - 600 U/L [facility] LABORATORY Specimen Blood - VENOUS Performing Organization Address City/[facility]/Zipcode Phone Number [facility] CLIA: [id number] [place] [address] LABORATORY [address] [facility] ACUTE CARE VENOUS BLOOD GAS (06/19/2020 10:49 PM CDT) Pathologist Sig nature PH 7.32 7.32 - 7.42 [facility] PCO2 MARCI 48 41 - 51 mmHg [facility] PO2 MARCI 25 25 - 40 mmHg [facility] HCO3 MARCI 24 24 - 28 mEq/L [facility] AC VBE(BEAKER) -2.1 mEq/L [facility] Specimen Blood - VENOUS Performing Organization Address [facility] Phone Number [facility] CLIA: [id number] [place] [address] [address] [facility] [address] ACTIVATED PARTIAL THRMPLAS ERIK (06/19/2020 6:14 PM CDT) Pathologist Sig nature APTT Patient 32 23 - 38 Seconds [facility] Specimen Blood - VENOUS Narrative Performed At The [facility] patient population mean normal value [facility] for aPTT is 30 seconds. Performing Organization Address [facility] Phone Number [facility] CLIA: [id number] [place] [address] [place] [address] Drive PROTHROMBIN TIME / INR (06/19/2020 6:14 PM CDT) PROTIME PATIENT 13.0 12.0 - 14.7 [facility] LABORATORY INR 1.0Comment: Normal [facility] INR <1.1; Warfarin [facility] Therapeutic range LABORATORY 2.0 to 3.0 or 2.5 to 3.5, depending upon the indications. Specimen Blood - VENOUS Performing Organization Address [facility] Phone Number [facility] CLIA: [id number] [place] [address] [address] D-DIMER (06/19/2020 6:14 PM CDT) Pathologist Sig nature D-DIMER 1.20 (H) <0.41 g/mL (FEU) [facility] Specimen Blood - VENOUS Narrative Performed At This test may be used in conjunction with a [facility] clinical pretest probability (PTP) assessment model to exclude venous thromboembolism (VTE) in patients suspected of deep venous thrombosis (DVT) and pulmonary embolism (PE) A D-Dimer value less than 0.50 g/ml (FEU) has a negative predicative value of 96 to 100% (95% CI)and 97 to 100% (95% CI) as an aid in the diagnosis of deep vein thrombosis (DVT) and pulmonary embolism when there is low or moderate pretest probability of PE or DVT. D-Dimer values are expressed in initial fibrinogen equivalent units (FEU)" The assay results should be used with other information, including the clinical context, in forming a diagnosis. Performing Organization Address City/State/Zipcode Phone Number [facility] CLIA: [id number] [place] [address] XR CHEST 1 VW (06/19/2020 5:03 PM CDT) Specimen Impressions Performed At PACS/VR/DOSE Radiographic findings suspicious for atypical infectio n, including COVID-19 pneumonia. Disclaimer: Generally, the findings on c hest imaging in COVID-19 are not specific, and overlap with other infecti ons, including influenza, H1N1, SARS and MERS. According to the Centers for Disease Control (CDC) and recent statement of the [employer], viral testing remai ns the only specific method of diagnosis. Confirmation with the viral test is required, even if radiologic findings are suggestive of CO VID-[address]. Preliminary Report Dictated by Resident: Sukhwinder Jacinto I, Yolette Lamas MD., have reviewed this study and agree with the above report. Narrative Performed At PACS/VR/DOSE PROCEDURE: CHEST, SINGLE VIEW . CLINICAL INDICATION: shortness of breath COMPARISON: None FINDINGS: Lungs: Ill-defined hazy streaky and patc hy airspace opacities are seen throughout the lungs, more conspicuous o n the right than. Pleura: No pleural effusion or pneumothorax is seen. T he cardiomediastinal silhouette is normal in size. No acute bony abnormality. Procedure Note [facility], Radiant Results Inft User - 2019 5:35 PM CDT PROCEDURE: CHEST, SINGLE VIEW . CLINICAL INDICATION: shortness of breath COMPARISON: None FINDINGS: Lungs: Ill-defined hazy streaky and patc hy airspace opacities are seen throughout the lungs, more conspicuous o n the right than. Pleura: No pleural effusion or pneumotho rax is seen. The cardiomediastinal silhouette is normal in size. No acute bony abnormality. IMPRESSION Radiographic findings suspicious for aty pical infection, including COVID-19 pneumonia. Disclaimer: Generally, the findings on c hest imaging in COVID-19 are not specific, and overlap with other infecti ons, including influenza, H1N1, SARS and MERS. According to the Centers for Disease Con trol (CDC) and recent statement of the [employer], viral testing remains the only specific method of diagnosis. Confirmation with t he viral test is required, even if radiologic findings are suggestive of CO VID-[address] Preliminary Report Dictated by Resident: Sukhwinder Jacinto I, Yolette Lamas MD., have review ed this study and agree with the above report. Performing Organization Address City/[facility] Phone Number PACS/VR/DOSE N-TERMINAL PRO-BNP (06/19/2020 4:49 PM CDT) Pathologist Sig [facility] NT-proBNP 33 <=125 pg/mL [facility] Specimen Blood - VENOUS Narrative Performed At Biotin has been reported to cause a negative [facility] bias, interpret results relative to patient's use of biotin. Performing Organization Address [facility] Cent[facility] Phone Number [facility] CLIA: [id number] [place] [address] URIC ACID (06/19/2020 4:49 PM CDT) [facility] URIC ACID 5.7 3.6 - 8.0 mg/dL [facility] Specimen Blood - VENOUS Performing Organization Address [facility] Phone Number [facility] CLIA: [id number] [place] [address] CREATINE KINASE (06/19/2020 4:49 PM CDT) Pathologist Sig nature CK 260 (H) 33 - 194 U/L [facility] Specimen Blood - VENOUS Performing Organization Address [facility] Phone Number [facility] CLIA: [id number] [place] [address] PHOSPHORUS (06/19/2020 4:49 PM CDT) Pathologist Sig nature PHOSPHORUS 3.8 2.5 - 5.0 mg/dL [facility] Specimen Blood - VENOUS Performing Organization Address [facility] Phone Number [facility] CLIA: [id number] [place] [address] [address] MAGNESIUM (06/19/2020 4:49 PM CDT) Pathologist Sig nature MAGNESIUM 2.0 1.7 - 2.4 mg/dL [facility] Specimen Blood - VENOUS Performing Organization Address [facility] Phone Number [facility] CLIA: [id number] [place] [id number] LABORATORY [address] LIPID PANEL ([id number])(TOTAL CHOLESTEROL, TRIGLYCERIDES, HDL) (06/19/2020 4:49 PM CDT) Pathologist Sig nature CHOL 281 (H) 120 - 200 mg/dL [facility] HDL 32 (L) >40 mg/dL [facility] HDLC RATIO 8.8 (H) <=5.0 [facility] TRIG 118 30 - 170 mg/dL [facility] LDL CHOL 225 (H) <=160 mg/dL [facility] VLDL 24 5 - 60 mg/dL [facility] Specimen Blood - VENOUS Performing Organization Address [facility] Phone Number [facility] CLIA: [id number] [place] [id number] LABORATORY [address] THYROID STIMULATING HORMONE (06/19/2020 4:49 PM CDT) Pathologist Sig nature TSH 3.19 0.45 - 4.70 mIU/L [facility] Specimen Blood - VENOUS Performing Organization Address [facility] Cent[facility]ode Phone Number [facility] CLIA: [id number] [place] [address] [address] GLYCOSYLATED HEMOGLOBIN (A1C) (06/19/2020 4:49 PM CDT) Pathologist Sig nature HGB A1C 5.9 4.0 - 6.0 % [facility] Specimen Blood - VENOUS Narrative Performed At %A1C (NGSP) Interpretation (ADA) [facility] 4.8-5.6 Normal or (Non-Diabetic Ra nge) 5.7-6.4 Increased Risk (Pre-Diabet ic) >6.5 Diabetes Indicated Performing Organization Address [facility] Phone Number [facility] CLIA: [id number] [place] [address] SEDIMENTATION RATE (06/19/2020 4:49 PM CDT) Pathologist Sig nature ESR 32 (H) 0 - 10 mm/HR [facility] Specimen Blood - VENOUS Performing Organization Address [facility] Phone Number [facility] CLIA: [id number] [place] [address] FERRITIN SERUM (06/19/2020 4:49 PM CDT) Pathologist Sig nature FERRITIN 1,340.0 (H) 18.0 - 464.0 ng/mL [facility] Specimen Blood - VENOUS Narrative Performed At Biotin has been reported to cause a negative [facility] bias, interpret results relative to patient's use of biotin. Performing Organization Address [facility] Phone Number [facility] CLIA: [id number] [place] [address] CBC WITH DIFF (06/19/2020 4:49 PM CDT) Pathologist Sig nature WBC 4.66 4.20 - 10.70 [facility] 10*3/L HOSPITAL LABORATORY RBC 5.27 4.26 - 5.52 [facility] 10*6/L [facility] HGB 14.8 12.2 - 16.4 [facility] g/dL [facility] HCT 45.7 38.4 - 49.3 % [facility] MCV 86.7 81.7 - 95.6 fL [facility] MCH 28.1 26.1 - 32.7 pg [facility] MCHC 32.4 31.2 - 35.0 [facility] g/dL HOSPITAL LABORATORY RDW-SD 38.7 38.5 - 51.6 fL [facility] RDW-CV 12.1 12.1 - 15.4 % [facility] PLT 156 150 - 328 [facility] 10*3/L HOSPITAL LABORATORY MPV 10.8 9.8 - 13.0 fL [facility] NRBC/100 WBC 0.0 0.0 - 10.0 /100 [facility] WBCs [facility] NRBC x10^3 <0.01 10*3/L [facility] GRAN MAT (NEUT) % 67.6 % [facility] IMM GRAN % 0.20 % [facility] LYMPH % 26.4 % [facility] MONO % 5.8 % [facility] EOS % 0.0 % [facility] BASO % 0.0 % [facility] GRAN MAT x10^3(ANC) 3.15 1.99 - 6.95 [facility] 10*3/uL HOSPITAL LABORATORY IMM GRAN x10^3 <0.03 0.00 - 0.06 [facility] 10*3/uL HOSPITAL LABORATORY LYMPH x10^3 1.23 1.09 - 3.23 [facility] 10*3/uL HOSPITAL LABORATORY MONO x10^3 0.27 (L) 0.36 - 1.02 [facility] 10*3/uL [facility] EOS x10^3 <0.03 (L) 0.06 - 0.53 [facility] 10*3/uL HOSPITAL LABORATORY BASO x10^3 <0.03 0.01 - 0.09 [facility] 10*3/uL [facility] Specimen Blood - VENOUS Performing Organization Address City/[facility]/Zipcode Phone Number [facility] CLIA: [id number] [place] [address] LIPASE, SERUM (06/19/2020 4:49 PM CDT) Pathologist Sig nature LIPASE 155 0 - 220 U/L [facility] Specimen Blood - VENOUS Performing Organization Address [facility] Cent[facility] Phone Number [facility] CLIA: [id number] [place] [address] COMP. METABOLIC PANEL ([id number]) (06/19/2020 4:49 PM CDT) Pathologist Sig nature NA 135 135 - 145 [facility] mmol/L HOSPITAL LABORATORY K 4.1 3.5 - 5.0 [facility] mmol/L HOSPITAL LABORATORY CL 95 (L) 98 - 108 mmol/L [facility] CO2 TOTAL 28 23 - 31 mmol/L [facility] AGAP 12 2 - 16 [facility] BUN 13 7 - 23 mg/dL [facility] GLUCOSE 114 (H) 70 - 110 mg/dL [facility] CREATININE 1.20 0.60 - 1.25 [facility] mg/dL [facility] TOTAL BILI 0.7 0.1 - 1.1 mg/dL [facility] CALCIUM 9.4 8.6 - 10.6 [facility] mg/dL [facility] T PROTEIN 8.4 (H) 6.3 - 8.2 g/dL [facility] ALBUMIN 4.6 3.5 - 5.0 g/dL [facility] ALK PHOS 65 34 - 122 U/L [facility] ALTv 46 5 - 50 U/L [facility] AST(SGOT) 50 (H) 13 - 40 U/L [facility] eGFR Calculation 64.9 mL/min/1.73m2 [facility] [place]) eGFR Calculation 78.7 mL/min/1.73m2 [facility] () [facility] Specimen Blood - VENOUS Narrative Performed At [facility] of Glomerular Filtration Rate (GFR) [facility] LABORATORY and Staging of Kidney Disease* + + +- + | GFR (mL/min/1.73 m2) | With Kidney Damage | Without Kidney Damage + + +- + | >90 | Stage one | Normal + + +- + | 60-89 | Stage two | Decreased GFR + + +- + | 30-59 | Stage three | Stage three + + +- + | 15-29 | Stage four | Stage four + + +- + | <15 (or dialysis) | Stage five | Stage five + + +- + *Each stage assumes the associated GFR level has been in effect for at least three months. Stages 1 to 5, with or without kidney disease, indicate chronic kidney disease. Notes: Determination of stages one and two (with eGFR >59mL/min/1.73 m2) requires estimation of kidney damage for at least three months as defined by structural or functional abnormalities of the kidney, manifested by either: Pathological abnormalities or Markers of kidney damage (including abnormalities in the composition of the blood or urine or abnormalities in imaging tests). Performing Organization Address [facility]/Zipcode Phone Number [facility] CLIA: [id number] [place] [address] TROPONIN I (06/19/2020 4:49 PM CDT) Pathologist Sig nature TROPONIN I <0.012 <=0.034 ng/mL [facility] Specimen Blood - VENOUS Narrative Performed At Equal or Less than 0.034 ng/ml---Normal [facility] Note: Cardiac troponin begins to rise 3-4 hours after the onset of ischemia. Repeat in 4-6 hours if the sample was drawn within 3-4 hours of the onset of the symptom and found normal. Between 0.035 and 0.120 ng/mL--- Borderline. Questionable myocardial injury or necros is Note: Serial measurement may be necessary to confirm or exclude the diagnosis of myocardial injury or necrosis; Clinical correlation (symptoms, EKGs, imaging studies, and others) required; Repeat in 4-6 hours if clinically indicated. Equal or Higher than 0.121 ng/mL---Abnormal. Myocardial Injury or Necrosis Likely Biotin has been reported to cause a negative bias, interpret results relative to patient's use of biotin. Performing Organization Address [facility] Phone Number [facility] CLIA: [id number] [place] [address] [address] documented in this encounter Visit Diagnoses Diagnosis COVID-19 virus infection - Primary Fever, unspecified fever cause Positive D dimer Abnormal coagulation profile documented in this encounter Administered Medications Medication Order MAR Action Action Date Dose Rate Site albuterol-ipratropium (COMBIVENT Given 06/20/2020 3:18 PM CDT 2 Puffs RESPIMAT) 20-100 mcg/actuation inhaler 2 Puff 2 Puff, Inhalation, QID, First dose on Thu06/20/20 at 0800, Until Discontinued, Routine, Is this order for a patient with suspected or confirmed COVID-19 infection? Yes Given 06/20/2020 10:36 AM CDT 2 Puffs Given 06/20/2020 7:13 AM CDT 2 Puffs ascorbic acid (vitamin C) (VITAMIN C) tablet Given 3:24 PM CDT 500 mg 500 mg 500 mg, Oral, TID, First dose (after last modification) on Thu06/20/20 at 1445, Until Discontinued, Routine atorvastatin (LIPITOR) tablet 40 mg 40 mg, Oral, QHS, First dose on 06/01 at 2100, Until Discontinued, Routine azithromycin (ZITHROMAX) 500 mg in NaCl 0.9% Given 3:08 AM CDT 500 mg (NS) 250 mL VIAL-MATE IV piggyback 500 mg, IV Piggyback, Q24H ABX, 5 doses, First dose on Thu06/20/20 at 0145, Last dose on Thu06/24/20 at 0145, 250 mL, Reason for Anti-Infective: Empiric Therapy for Suspected Infection, Empiric Therapy Site: COVID, Duration of therapy: 7 days cefTRIAXone (ROCEPHIN) 1,000 mg in NaCl Given 06/20/2020 2:10 A M CDT 1,000 mg 0.9% (NS) 50 mL MINI-BAG 1,000 mg, IV Piggyback, Q24H ABX, First dose on Thu06/20/20 at 0145, Until Discontinued, 50 mL, Reason for Anti-Infective: Empiric Therapy for Suspected Infection, Empiric Therapy Site: Respiratory, Duration of therapy: 7 days dexamethasone (DECADRON) 8 mg in NaCl 0.9% New Bag 06/20/2020 8:50 AM CDT 8 mg (NS) piggyback 8 mg, IV Piggyback, DAILY, First dose on Thu06/19/20 at 1815, Until Discontinued, 50 mL New Bag 06/19/2020 10:05 PM CDT 8 mg enoxaparin (LOVENOX) injection 90 mg Given 06/20/2020 9:11 AM CDT 90 mg Abdo men-SC 90 mg (rounded from 88.5 mg = 1 mg/kg 88.5 kg), Subcutaneous, Q12H, First dose on Thu06/19/20 at 2045, Until Discontinued, Routine Given 06/19/2020 9:52 PM CDT 90 mg Abdo men-SC ergocalciferol (vitamin d2) Given 06/20/2020 8:51 AM CDT 50,000 Units (CALCIFEROL) capsule 50,000 Units 50,000 Units, Oral, QWEEKLY, First dose on Thu06/20/20 at 0900, Until Discontinued, Routine guaiFENesin 100 mg/5 mL solution 200 mg Given 06/20/2020 3:27 AM CDT 200 mg 200 mg, Oral, Q4HPRN, Starting Thu06/20/20 at 0035, Until Discontinued, Routine, Cough zinc sulfate (ORAZINC) capsule 220 mg Given 06/20/2020 1:45 PM CDT 220 mg 220 mg, Oral, TID, First dose on Thu06/20/20 at 0800, Until Discontinued, Routine Given 06/20/2020 8:50 AM CDT 220 mg Medication Order MAR Action Action Date Dose Rate Site acetaminophen (TYLENOL) tablet Given 06/19/2020 4:49 PM CDT 1,0 00 mg 1,000 mg 1,000 mg, Oral, ONCE, 1 dose, Thu06/19/20 at 1800, PORTILLO ascorbic acid (vitamin C) (VITAMIN C) tablet Given 8:51 AM CDT 500 mg 500 mg 500 mg, Oral, BID, First dose on Thu06/20/20 at 0800, Until Discontinued, Routine iohexol (OMNIPAQUE 350 BULK-150 mL) Given 06/20/2020 10:02 AM CD T 120 mL injection 120 mL 120 mL, Intravenous, ONCE, 1 dose, Thu06/20/20 at 1015, Routine NaCl 0.9% (NS) bolus infusion New Bag 06/19/2020 4:48 PM CDT 1,000 mL 999 mL/hr 1,000 mL at 999 mL/hr, 1,000 mL, IV Infusion, ONCE, 1 dose, Thu06/19/20 at 1800, STAT documented in this encounter Additional Health Concerns Infection Onset Date Last Indicated Resolved Time COVID-19 Confirmed 06/14/2020 06/14/2020 documented as of this encounter Insurance Payer Benefit Plan / Subscriber ID Effective Dates Phone Addre ss Type Group [facility] [id number] 2019-Presen PPO/POS PPO/POS t documented as of this encounter
--- OUTSIDE RECORDS SUMMARY | 2020-06-24 04:24 | XMS REPORT | Continuity of Care Document ---
:1975 Author Organization [facility] t Address [address] [place] [address] Care Team Providers Name Role Phone Apollo Gamez RN Attending Clinician Patrick Martinez DO Attending Clinician Akila LUIS Attending Clinician Akila LUIS Admitting Clinician Problems Condition Condition Condition Status Onset Resolution Last Treating Co mments Source Name Details Category Date Date Treatment Clinician Date Hyperlipid Hyperlipid Problem Active [facility] Allergies, Adverse Reactions, Alerts This patient has no known allergies or adverse reactions. Medications Ordered Filled Start Stop Current Ordering Indication Dosage Frequency Signature Comments Components Source Medication Medication Date Date Medication? Clinician (SIG) Name Name Atorvastati Atorvastati Yes Carley [address] [facility] Calcium n Calcium 3-25 [place] [facility] - [facility]: [facility] 00 [facility] ent Clinics Procedures This patient has no known procedures. Encounters Start End Encounter Admission Attending Care Care Encounter Source Date/Time Date/Time Type Type Clinicians Facility Department ID 2020-06-21 2020-06-21 Transition Bianca Gamez [id number] 00:00:00 00:00:00 of Care Jaye Rubin [id number] [place] [id number] 2020-06-19 2020-06-20 [facility] Evelia Martinez [facility] [id number] 16:34:00 16:26:00 Encounter Bruce Wilburn [id number] [place] [id number] [place] [id number] 2019-11-14 2019-11-14 [facility] [id number] [facility] 11:05:00 11:05:00 [facility] 2019-09-20 2019-09-20 [facility] [id number] 16:40:00 16:40:00 [facility] Clinics 2018-09-20 2018-09-20 [facility] [id number] [address] 16:34:00 16:34:00 [facility] 2018-09-16 2018-09-16 [facility] [id number] [facility] 14:00:00 14:00:00 [facility] Results This patient has no known results.
--- OUTSIDE RECORDS SUMMARY | 2020-06-24 04:24 | XMS REPORT | Summary of Care ---
:1975 [address] [facility] - Health Address [address] [place] [id number] Care Team Providers Name Role Phone Pcp, Patient Does Not Have A Primary Care Provider +[id number] 0-0000 Reason for Visit Reason Comments Transition Of Care Encounter Details Date Type Department Care Team Description 06/21/2020 Transition of Care [facility] Jaye Gamez [facility]- RN [address] [address] Allergies No Known Allergiesdocumented as of this encounter (statuses as of 06/22/2020) Medications Medication Sig Dispensed Refills Start Date End Date Status atorvastatin 40 mg Take 40 mg by 0 Active tablet mouth at bedtime. albuterol-ipratropium Inhale 2 Puffs 2 4 g 0 06/20/2020 06/30/2020 Active 20-100 mcg/actuation (two) times inhalerIndications: daily for 10 COVID-19 virus days. Can stop infection after 10 days ascorbic acid, Take 1 tablet by 60 tablet 0 06/20/2020 020 Active vitamin C, 500 mg mouth 2 (two) tabletIndications: times daily for COVID-19 virus 30 days. infection azithromycin 250 mg Take 1 tablet by 1 Package 0 06/20/2020 Active tabletIndications: mouth daily. COVID-19 virus Take 500 mg day infection 1, then 250 mg days 2 to 5. ergocalciferol, Take 1 capsule 4 capsule 1 06/27/2020 08/26/20 20 Active vitamin d2, 1,250 mcg by mouth weekly (50,000 unit) for 60 days. capsuleIndications: COVID-19 virus infection zinc sulfate 220 (50) Take 1 capsule 30 capsule 0 06/20/2020 1 09/19/2019 Active mg by mouth daily capsuleIndications: for 30 days. COVID-19 virus infection dexAMETHasone 4 mg Decadron 8 mg 17 tablet 0 06/20/2020 Active tabletIndications: daily for 5 COVID-19 virus days. Then infection decadron 4 mg daily for 5 days. Then decadron 2 mg daily for 5 days. apixaban 2.5 mg Take 1 tablet by 28 tablet 0 06/20/2020 Active tabletIndications: mouth 2 (two) COVID-19 times daily. Stop after 2 weeks Indications: COVID-19 documented as of this encounter (statuses as of 06/22/2020) Active Problems Problem Noted Date Positive D dimer 06/20/2020 COVID-19 virus infection 06/19/2020 documented as of this encounter (statuses as of 06/22/2020) Social History Tobacco Use Types Packs/Day Years Used Date Never Assessed Sex Assigned at Date Recorded Not on file COVID-19 Exposure Response Date Recorded In the last month, have you been in contact with Yes 06/19/2020 4:45 PM CDT someone who was confirmed or suspected to have Coronavirus / COVID-19? documented as of this encounter Last Filed Vital Signs Not on filedocumented in this encounter Miscellaneous Notes Telephone Encounter - Jaye Gamez RN - 06/22/2020 9:01 AM CDT TRANSITIONAL CARE MANAGEMENT ASSESSMENT 06/22/2020 Jaydon Montoya [id number] Jaydon Montoya is a 45 year old Black or male was admitted on 06/19/20 to [facility] ICU. He was discharged on 06/20/20 with discharge disposition of HR- Routine Discharge. Admitting Physician: Bruce Wilburn Discharge Diagnosis: COVID-19 virus infection Linked Episodes Type: Episode: Status: Noted: Resolved: Last update: Updated by: TRANSITION OF CARE TCM Active 06/20/2020 06/21/2020 12:05 PM Jaye Gamez RN Comments:06/20/2020 TCM [id number] outreach documentation: Discharge Assessment Chart Assessed: 06/22/20 TCM Outreach Completed: 06/22/20 Do you have a few minutes to speak with me about how you are doing at home?: Yes Discharge Instructions Do you understand your at-home instructions?: Yes Medications Have you filled your prescriptions and do you have them in your home? : Yes Do you know how to take your medications?: Yes Supplies Did you receive applicable home medical supplies/equipment?: N/A Follow Up Appointment Has a follow up appointment been scheduled?: Yes(Patient does not have a PCP but will follow up) Do you have any questions about your follow up appointments?: No Are you able to get to your appointment? Who will be taking you?: Yes(self) Home Health Assistance Has the home health nurse contacted you since you've been home?: N/A Survey - Recognition Is there anything you would like to share about your recent hospitalization, or anyone you would like to recognize?: No Do you have any suggestions for improvement?: No Do you have any other questions or concerns at this time?: No Future Appointments: Telephone Encounter - Jaye Gamez RN - 06/21/2020 12:05 PM CDTCare Transition CM made f/u call to pt post-discharge. No response and call went to voicemail. CM left a discreet message with purpose of call and CM's call back information. Jaye Gamez RN, BSN Transition Rn-[facility] TEAM [phone] documented in this encounter Plan of Treatment Health Maintenance Due Date Last Done Comments Depression Screening 1985 DTaP,Tdap,and Td Vaccines (1 - 02/20/1992 Tdap) INFLUENZA VACCINE (#1) 2020 Colorectal Cancer Screening 2023 PNEUMOCOCCAL 0-64 YEARS COMBINED Aged Out No longer eligible based on SERIES patient's age to complete this topic documented as of this encounter Results Not on filedocumented in this encounter Additional Health Concerns Infection Onset Date Last Indicated Resolved Time COVID-19 Confirmed 06/14/2020 06/14/2020 documented as of this encounter Insurance Payer Benefit Plan / Subscriber ID Effective Dates Phone Addre ss Type Group [facility] [id number] 2019-Presen PPO/POS PPO/POS t documented as of this encounter
[2020-06-24 04:53] LABS: Basophils % 0.3 % (0-1.3); Hematocrit 41.7 % (39.6-49.0); Lymphocytes % 7.8 % (15.3-44.8); MPV 8.4 fL (7.6-11.3); RBC Red Blood Cell Count 4.92 M/uL (4.33-5.43)
[2020-06-24] MEDS ORDERED: NA CHLORIDE 0.9% 1,000 ML ONE (04:53)
[2020-06-24] MEDS ORDERED: NA CHLORIDE 0.9% 250 ML ONE (04:53)
[2020-06-24] MEDS ORDERED: dexAMETHasone 4 MG/ML VIAL ONE (04:53)
[2020-06-24] MEDS ORDERED: CEFTRIAXONE 1000 MG/VIAL ONE (04:53)
[2020-06-24] MEDS ORDERED: FAMOTIDINE 20 MG/2 ML VIAL IV ONE (04:53)
[2020-06-24 04:56] LABS: Protime INR 1.32
[2020-06-24] MEDS ORDERED: AZITHROMYCIN 500 MG INJ IVPB ONE (05:05)
[2020-06-24] MEDS ORDERED: ALBUTEROL INHALER 60 PUFF/8 GM IH ONE (05:06)
[2020-06-24 05:13] LABS: ALT/SGPT 32 U/L (12-78); AST/SGOT 36 U/L (15-37); Albumin 3.2 g/dL (3.4-5.0); Alkaline Phosphatase 62 U/L (45-117); BUN Blood Urea Nitrogen 14 mg/dL (7-18); Bicarbonate 28 mmol/L (21-32); Bilirubin Direct 0.1 mg/dL (0-0.2); Bilirubin Total 0.5 mg/dL (0.2-1.0); Glucose Level 107 mg/dL (74-106); Magnesium 2.2 mg/dL (1.8-2.4); NT PRO-BNP 180 pg/mL (<125); Potassium 3.9 mmol/L (3.5-5.1); Protein, Total 8.1 g/dL (6.4-8.2); Sodium Level 138 mmol/L (136-145); Troponin (Emerg Dept Use Only) < 0.02 ng/mL (0.0-0.045)
[2020-06-24 05:19] LABS: Blood Morphology Comment NOT SEEN (NOT SEEN); Platelet Estimate ADEQ
--- NOTE | 2020-06-24 06:04 | ER ---
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 Coronavirus screen: Client reports previous positive COVID test result. Date of collection: June 14, 2020. Ebola Screen: No symptoms or risks identified at this time. Initial Sepsis Screen: Does the patient meet any 2 criteria? No. Patient's initial sepsis screen is negative. Does the patient have a suspected source of infection? No. Patient's initial sepsis screen is negative. Risk Assessment: Do you want to hurt yourself or someone else? Patient reports no desire to harm self or others. Onset of symptoms was June 24, 2020. 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 - Social history:: Smoking status: Patient denies any tobacco usage or history of. - Family history:: not pertinent. Screenin:37 Abuse screen: Denies threats or abuse. Denies injuries from another. Nutritional lp1 screening: No deficits noted. Tuberculosis screening: No symptoms or risk factors identified. 05:04 Fall Risk None identified. rv Assessment: 05:03 General: Appears uncomfortable, Behavior is calm, cooperative. Pain: Denies pain. rv Neuro: Level of Consciousness is awake, alert, obeys commands, Oriented to person, place, time, situation. Cardiovascular: Patient's skin is warm and dry. Rhythm is sinus rhythm. Respiratory: Airway is patent Respiratory effort is labored, Respiratory pattern is tachypnea. Respiratory: Breath sounds are coarse bilaterally. Derm: Skin is intact. 07:10 Reassessment: Patient appears in no apparent distress at this time. No changes from sv previously documented assessment. Patient and/or family updated on plan of care and expected duration. Pain level reassessed. Patient is alert, oriented x 3, equal unlabored respirations, skin warm/dry/pink. 08:30 Reassessment: Patient appears in no apparent distress at this time. No changes from sv previously documented assessment. Patient and/or family updated on plan of care and expected duration. Pain level reassessed. Patient is alert, oriented x 3, equal unlabored respirations, skin warm/dry/pink. Vital Signs: 04:32 BP 135 / 94; Pulse 88; Resp 24; Temp 99(O); Pulse Ox 89% on R/A; Weight 84.37 kg (R); lp1 Height 5 ft. 6 in. (167.64 cm); Pain 0/10; 05:04 BP 127 / 87; Pulse 92; Resp 20; Pulse Ox 95% on 2 lpm NC; rv 07:43 BP 124 / 95; Pulse 90; Resp 24; Pulse Ox 95% on 2 lpm NC; sv 08:24 BP 129 / 98; Pulse 91; Resp 21; Pulse Ox 95% on 2 lpm NC; sv 09:22 BP 114 / 89; Pulse 94; Resp 22; Pulse Ox 95% on 2 lpm NC; sv 04:32 Body Mass Index 30.02 (84.37 kg, 167.64 cm) lp1 ED Course: 04:23 Patient arrived in ED. mw2 04:30 Max Bryan MD is Attending Physician. chance 04:33 Luiz Singh RN is Primary Nurse. rv 04:35 Initial lab(s) drawn, by me, sent to lab. Inserted saline lock: 20 gauge in right rv antecubital area, using aseptic technique. Blood collected. 04:35 First set of blood cultures drawn by me. rv 04:36 Triage completed. lp1 04:36 Arm band placed on. lp1 04:37 Patient has correct armband on for positive identification. Placed in gown. Bed in low lp1 position. Call light in reach. gravel wheeler on. Pulse ox on. NIBP on. 04:47 Second set of blood cultures drawn by me. rv 04:53 XRAY Chest (1 view) In Process Unspecified. EDMS 05:29 CT Chest For PE Angio In Process Unspecified. EDMS 06:01 Cullen Anaya MD is Hospitalizing Provider. chance 07:55 Primary Nurse role handed off by Luiz Singh RN sv 07:55 Lisa Flores, SHERRELL is Primary Nurse. sv 08:15 COVID-19 Sent. sv 08:15 CORONAVIRUS Sent. sv 09:21 No provider procedures requiring assistance completed. Patient admitted, IV remains in sv place. intact. Administered Medications: 04:49 Drug: Decadron - Dexamethasone 6 mg Route: IVP; Site: right antecubital; rv 05:21 Follow up: Response: No adverse reaction mg2 04:50 Drug: Pepcid 20 mg Route: IVP; Site: right antecubital; rv 05:21 Follow up: Response: No adverse reaction mg2 04:50 Drug: Rocephin 1 grams Route: IV; Rate: per protocol; Site: right antecubital; rv 05:03 Follow up: IV Status: Completed infusion rv 04:50 Drug: NS 0.9% 500 ml Route: IV; Rate: bolus; Site: right antecubital; rv 04:50 Drug: NS 0.9% 1000 ml Route: IV; Rate: 125 ml/hr; Site: right antecubital; rv 09:40 Follow up: IV Status: Infusion continued upon admission sv 05:03 Drug: Zithromax 500 mg Route: IVPB; Infused Over: 1 hrs; Site: right antecubital; rv 05:03 Drug: Albuterol HFA Inhaler 4 puffs Route: Inhalation; rv Outcome: 06:03 Decision to Hospitalize by Provider. chance 09:28 Admitted to ICU accompanied by tech, via stretcher, room 7, with oxygen, with chart, sv Report called to Trista WYNNE 09:28 Condition: stable 09:28 Instructed on the need for admit. 09:43 Patient left the ED. sv Signatures: Dispatcher [employer] Lisa Swain RN RN sv Anderson, Corey, MD MD cha Pena, Laura, RN RN 1 Sugar Guidry 2 Jose Hurst RN RN mg2 Luiz Singh, RN RN rv
--- NOTE | 2020-06-24 06:04 | EDPHYS ---
Physician Documentation [facility] Name: Jaydon Montoya Age: 45 yrs Sex: Male : 1975 Arrival Date: 06/24/2020 Time: 04:23 Bed 8 Private MD: ED Physician Max Bryan HPI: 06/24 04:48 This 45 yrs old Black Male presents to ER via EMS with complaints of sob, covid 19 chance poositive. 04:48 The patient has shortness of breath at rest, with light activity. Onset: The chance symptoms/episode began/occurred 2 day(s) ago. Duration: The symptoms are continuous, and are steadily getting worse. The patient's shortness of breath is aggravated by coughing, is alleviated by application of supplemental oxygen. The patient or guardian reports cough, difficulty breathing, flu symptoms. Modifying factors: The symptoms are alleviated by nothing. the symptoms are aggravated by nothing. Associated signs and symptoms: Pertinent positives: non-productive cough, dizziness. Severity of symptoms: At their worst the symptoms were mild moderate in the emergency department the symptoms have improved. 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 - Social history:: Smoking status: Patient denies any tobacco usage or history of. - Family history:: not pertinent. ROS: 04:48 Constitutional: Negative for fever, chills, and weight loss, Eyes: Negative for injury, chance pain, redness, and discharge, ENT: Negative for injury, pain, and discharge, Neck: Negative for injury, pain, and swelling, Cardiovascular: Negative for chest pain, palpitations, and edema, Abdomen/GI: Negative for abdominal pain, nausea, vomiting, diarrhea, and constipation, Back: Negative for injury and pain, : Negative for injury, bleeding, discharge, and swelling, MS/Extremity: Negative for injury and deformity, Skin: Negative for injury, rash, and discoloration, Neuro: Negative for headache, weakness, numbness, tingling, and seizure, Psych: Negative for depression, anxiety, suicide ideation, homicidal ideation, and hallucinations, Allergy/Immunology: Negative for hives, rash, and allergies, Endocrine: Negative for neck swelling, polydipsia, polyuria, polyphagia, and marked weight changes, Hematologic/Lymphatic: Negative for swollen nodes, abnormal bleeding, and unusual bruising. 04:48 Respiratory: Positive for cough, orthopnea, shortness of breath, wheezing, expiratory. Exam: 04:48 Constitutional: This is a well developed, well nourished patient who is awake, alert, chance and in no acute distress. Head/Face: Normocephalic, atraumatic. Eyes: Pupils equal round and reactive to light, extra-ocular motions intact. Lids and lashes normal. Conjunctiva and sclera are non-icteric and not injected. Cornea within normal limits. Periorbital areas with no swelling, redness, or edema. ENT: Nares patent. No nasal discharge, no septal abnormalities noted. Tympanic membranes are normal and external auditory canals are clear. Oropharynx with no redness, swelling, or masses, exudates, or evidence of obstruction, uvula midline. Mucous membranes moist. Neck: Trachea midline, no thyromegaly or masses palpated, and no cervical lymphadenopathy. Supple, full range of motion without nuchal rigidity, or vertebral point tenderness. No Meningismus. Chest/axilla: Normal chest wall appearance and motion. Nontender with no deformity. No lesions are appreciated. Cardiovascular: Regular rate and rhythm with a normal S1 and S2. No gallops, murmurs, or rubs. Normal PMI, no JVD. No pulse deficits. Abdomen/GI: Soft, non-tender, with normal bowel sounds. No distension or tympany. No guarding or rebound. No evidence of tenderness throughout. Back: No spinal tenderness. No costovertebral tenderness. Full range of motion. Male : Normal genitalia with no discharge or lesions. Skin: Warm, dry with normal turgor. Normal color with no rashes, no lesions, and no evidence of cellulitis. MS/ Extremity: Pulses equal, no cyanosis. Neurovascular intact. Full, normal range of motion. Neuro: Awake and alert, GCS 15, oriented to person, place, time, and situation. Cranial nerves II-XII grossly intact. Motor strength 5/5 in all extremities. Sensory grossly intact. Cerebellar exam normal. Normal gait. Psych: Awake, alert, with orientation to person, place and time. Behavior, mood, and affect are within normal limits. 04:48 Respiratory: mild respiratory distress is noted, Respirations: no acute changes, Breath sounds: decreased breath sounds, that are mild, are located in both bases, rhonchi. 04:48 : CVA tenderness, is absent, Male external genitalia: abrasion, Bladder: distension, Sexual behavior: the patient is sexually active, and reports a single partner. 04:48 Musculoskeletal/extremity: ROM: no acute changes, intact in all extremities, Circulation is intact in all extremities. Pulses: Sensation intact. Compartment Syndrome exam of affected extremity: is normal. Joints: All joints are normal except DVT Exam: No signs of deep vein thrombosis. no pain, no swelling, no tenderness, negative Homans' sign noted on exam, no appreciated bluish discoloration, no erythema, no increased warmth. 04:52 ECG was reviewed by the Attending Physician. chance Vital Signs: 04:32 BP 135 / 94; Pulse 88; Resp 24; Temp 99(O); Pulse Ox 89% on R/A; Weight 84.37 kg (R); lp1 Height 5 ft. 6 in. (167.64 cm); Pain 0/10; 05:04 BP 127 / 87; Pulse 92; Resp 20; Pulse Ox 95% on 2 lpm NC; rv 07:43 BP 124 / 95; Pulse 90; Resp 24; Pulse Ox 95% on 2 lpm NC; sv 08:24 BP 129 / 98; Pulse 91; Resp 21; Pulse Ox 95% on 2 lpm NC; sv 09:22 BP 114 / 89; Pulse 94; Resp 22; Pulse Ox 95% on 2 lpm NC; sv 04:32 Body Mass Index 30.02 (84.37 kg, 167.64 cm) lp1 MDM: 04:30 Patient medically screened. chance 04:52 Differential diagnosis: Anemia Anxiety Reaction CHF exacerbation, Chronic Obstructive chance Pulmonary Disease bronchitis, flu, pneumonia, pulmonary edema, Pulmonary Embolism Sepsis Unstable Angina. Antibiotic administration: Rocephin and Zithromax given. The patient's Wells Deep Vein Thrombosis Score was calculated as follows: Suspected DVT (3 Pts) Heart Rate >100 BPM (1.5 Pts) Total Score: 3-6 Pts - Mod Risk. The patient's pulmonary embolism risk score was calculated as follows: suspected deep vein thrombosis (3 Pts) Total Score: 3-6 points. This patient was found to be at moderate risk for a pulmonary embolism by using the Well's assessment criteria. Immunization status:. Data reviewed: vital signs, nurses notes, lab test result(s), EKG, radiologic studies. Data interpreted: surveillance monitor: rate is 99 beats/min, rhythm is regular, Pulse oximetry: on room air is 89 %. Test interpretation: by ED physician or midlevel provider: ECG, plain radiologic studies. 06/24 04:35 Order name: Basic Metabolic Panel; Complete Time: 05:58 chance 06/24 04:35 Order name: CBC with Diff; Complete Time: 05:58 [facility] 06/24 04:35 Order name: LFT's; Complete Time: 05:58 [facility] 06/24 04:35 Order name: Magnesium; Complete Time: 05:58 [facility] 06/24 04:35 Order name: NT PRO-BNP; Complete Time: 05:58 [facility] 06/24 04:35 Order name: PT-INR; Complete Time: 05:58 [facility] 06/24 04:35 Order name: Troponin (emerg Dept Use Only); Complete Time: 05:58 [facility] 06/24 04:35 Order name: Blood Culture Adult (2) [facility] 06/24 04:35 Order name: Lactate; Complete Time: 05:58 [facility] 06/24 04:35 Order name: Procalcitonin; Complete Time: 05:58 [facility] 06/24 05:01 Order name: Manual Differential; Complete Time: 05:58 [facility] 06/24 06:15 Order name: CBC with Automated Diff [facility] 06/24 06:15 Order name: CBC with Automated Diff [facility] 06/24 06:15 Order name: Comprehensive Metabolic Panel [facility] 06/24 06:15 Order name: Comprehensive Metabolic Panel EDMS 06/24 06:15 Order name: Lactate EDMS 06/24 06:15 Order name: Lactate EDMS 06/24 06:15 Order name: Lipid Profile EDMS 06/24 06:15 Order name: Lipid Profile EDMS 06/24 06:15 Order name: Magnesium EDMS 06/24 06:15 Order name: Magnesium EDMS 06/24 06:15 Order name: NT PRO-BNP EDMS 06/24 06:15 Order name: NT PRO-BNP EDMS 06/24 04:34 Order name: XRAY Chest (1 view) rv 06/24 04:34 Order name: EKG; Complete Time: 04:35 rv 06/24 04:34 Order name: Cardiac monitoring; Complete Time: 04:34 rv 06/24 04:34 Order name: EKG - Nurse/Tech; Complete Time: 04:34 rv 06/24 04:34 Order name: IV Saline Lock; Complete Time: 04:34 rv 06/24 04:34 Order name: Labs collected and sent; Complete Time: 04:34 rv 06/24 04:34 Order name: O2 Per Protocol; Complete Time: 04:35 rv 06/24 04:34 Order name: O2 Sat Monitoring; Complete Time: 04:35 rv 06/24 04:35 Order name: EKG; Complete Time: 04:36 chance 06/24 04:35 Order name: CT Chest For PE Angio [facility] 06/24 06:15 Order name: CONS Physician Consult [facility] 06/24 06:15 Order name: Heart Healthy [facility] 06/24 06:15 Order name: Phosphorus [facility] 06/24 06:15 Order name: Phosphorus [facility] 06/24 06:17 Order name: C-Reactive Protein [facility] 06/24 06:17 Order name: D-Dimer [facility] 06/24 06:17 Order name: Ferritin [facility] 06/24 06:17 Order name: Lactic Dehydrogenase [facility] 06/24 06:17 Order name: C-Reactive Protein [facility] 06/24 06:17 Order name: D-Dimer [facility] 06/24 06:17 Order name: Ferritin [facility] 06/24 06:43 Order name: COVID-19 mw2 06/24 07:55 Order name: CORONAVIRUS [facility] 06/24 08:51 Order name: SARS-COV-2 RT PCR [facility] EC:52 Rate is 88 beats/min. Rhythm is regular. QRS [place] is Normal. GA interval is normal. QRS chance interval is normal. QT interval is normal. No Q waves. T waves are Normal. No ST changes noted. Clinical impression: NSR w/ Non-specific ST/T Changes and No evidence of ischemia. Interpreted by me. Reviewed by me. Administered Medications: 04:49 Drug: Decadron - Dexamethasone 6 mg Route: IVP; Site: right antecubital; rv 05:21 Follow up: Response: No adverse reaction mg2 04:50 Drug: Pepcid 20 mg Route: IVP; Site: right antecubital; rv 05:21 Follow up: Response: No adverse reaction mg2 04:50 Drug: Rocephin 1 grams Route: IV; Rate: per protocol; Site: right antecubital; rv 05:03 Follow up: IV Status: Completed infusion rv 04:50 Drug: NS 0.9% 500 ml Route: IV; Rate: bolus; Site: right antecubital; rv 04:50 Drug: NS 0.9% 1000 ml Route: IV; Rate: 125 ml/hr; Site: right antecubital; rv 09:40 Follow up: IV Status: Infusion continued upon admission sv 05:03 Drug: Zithromax 500 mg Route: IVPB; Infused Over: 1 hrs; Site: right antecubital; rv 05:03 Drug: Albuterol HFA Inhaler 4 puffs Route: Inhalation; rv Disposition: 06/24/20 06:03 Hospitalization ordered by Cullen Anaya for Inpatient Admission. Preliminary diagnosis are Congenital pneumonia due to viral agent - covid 19, bilateral multifocal , Hypoxemia, Bandemia. - Bed requested for Intensive Care Unit. - Status is Inpatient Admission. sv - Condition is Fair. - Problem is new. - Symptoms have improved. Signatures: Dispatcher [employer] EDLisa Ford RN Gianna Gonzalez RN RN dw Anderson, Corey, MD MD cha Pena, Laura, RN RN lp1 Luiz Singh RN RN rv Gardose, Michele RN mg2 Corrections: (The following items were deleted from the chart) 04:38 04:35 EKG - Nurse/Tech ordered. [facility] 04:38 04:35 IV Saline Lock ordered. [facility] lp1 04:38 04:35 Labs collected and sent ordered. [facility] 04:38 04:35 Oxygen Per Protocol ordered. [facility] 04:38 04:35 O2 Sat Monitoring ordered. [facility] lp1 04:39 04:35 Cardiac monitoring ordered. chance lp1 04:43 04:36 Chest Single View+RAD.RAD.BRZ ordered. EDMS EDMS 05:02 04:35 CBC+H.LAB.BRZ ordered. EDMS EDMS 05:02 04:35 PROTIME (+INR)+COAG.LAB.BRZ ordered. EDMS EDMS 05:03 04:35 BASIC METABOLIC PANEL+C.LAB.BRZ ordered. EDAK EDMS 05:03 04:35 HEPATIC FUNCTION+C.LAB.BRZ ordered. EDAK EDMS 05:03 04:35 MAGNESIUM+C.LAB.BRZ ordered. EDAK EDMS 05:03 04:35 PROBNP+C.LAB.BRZ ordered. EDAK EDMS 05:03 04:35 TROPONIN (EMERG DEPT USE ONLY)+C.LAB.BRZ ordered. [facility] EDAK 06:45 06:03 Hospitalization Ordered by Cullen Anaya MD for Inpatient Admission. Preliminary chance diagnosis is Congenital pneumonia due to viral agent - covid 19, bilateral multifocal ; Hypoxemia. Bed requested for Telemetry/MedSurg (Inpatient). Status is Inpatient Admission. Condition is Fair. Problem is new. Symptoms have improved. [facility] 09:12 06:45 06/24/2020 06:03 Hospitalization Ordered by Cullen Anaya MD for Inpatient dw Admission. Preliminary diagnosis is Congenital pneumonia due to viral agent - covid 19, bilateral multifocal ; Hypoxemia; Bandemia. Bed requested for Telemetry/MedSurg (Inpatient). Status is Inpatient Admission. Condition is Fair. Problem is new. Symptoms have improved. chance 09:43 09:12 06/24/2020 06:03 Hospitalization Ordered by Cullen Anaya MD for Inpatient sv Admission. Preliminary diagnosis is Congenital pneumonia due to viral agent - covid 19, bilateral multifocal ; Hypoxemia; Bandemia. Bed requested for Intensive Care Unit. Status is Inpatient Admission. Condition is Fair. Problem is new. Symptoms have improved. dw
[2020-06-24] MEDS ORDERED: ALBUTEROL INHALER 60 PUFF/8 GM IH PRN (06:11)
[2020-06-24] MEDS ORDERED: ONDANSETRON 4 MG/2 ML VIAL IV PRN (06:11)
[2020-06-24] MEDS ORDERED: ACETAMINOPHEN 500 MG TAB PO PRN (06:11)
[2020-06-24] MEDS ORDERED: ENOXAPARIN 40 MG/0.4 ML SQ SCH (09:00)
[2020-06-24] MEDS ORDERED: CEFTRIAXONE 1 GM/NS 50 ML 1 GM/50 ML BAG IV SCH ×2 (09:00→21:00)
--- NOTE | 2020-06-24 09:41 | RAD REPORT ---
EXAM DESCRIPTION: RAD - Chest Single View - 06/24/2020 4:54 am CLINICAL HISTORY: SOB, history positive COVID test COMPARISON: None TECHNIQUE: AP portable chest image was obtained 06/24/2020 4:54 am . FINDINGS: Lung volumes are low. Scattered airspace opacification is present in the lung sandoval worse on the right. No one area of focally more dense consolidation. Pattern is consistent with a COVID-19 pneumonia. Heart and vasculature are normal. No measurable pleural effusion and no pneumothorax. No acute bony abnormality seen. No acute aortic findings suspected. IMPRESSION: Right greater than left airspace opacification throughout the lung sandoval. Findings consistent with COVID-19 pneumonia.
[2020-06-24 10:26] VITALS: BMI 30.9
[2020-06-24] MEDS ORDERED: APIXABAN 2.5 MG TABLET PO SCH (10:32)
[2020-06-24] MEDS: METHYLPREDNISOLONE 40 MG INJ IV SCH ×2 (10:48→21:34)
--- NOTE | 2020-06-24 10:52 | P.CNS ---
Date of Consult: 06/24/20 Reason for Consult: Agrawal virus pneumonia Chief Complaint: Shortness of breath History of Present Illness: Patient is 45 years of age tested positive on 14 of June L of shortness of breath this week went to [facility] and was prescribed steroids antibiotics inhaler became worse and appeared in emergency room he is currently doing fine he has a nasal cannula oxygen CT scan consistent with agrawal virus pneumonia no other complaints Allergies No Known Allergies Allergy (Unverified 06/24/20 09:29) Home Medications: Atorvastatin Calcium [Lipitor] 40 mg PO BEDTIME 06/24/20 - Past Medical/Surgical History Diabetic: No -: prediabetic -: hypercholesterol -: r eye surgery - Family History Mother Medical History: Diabetes, Blood disorders - Social History Alcohol use: Yes CD- Drugs: No Caffeine use: Yes Place of Residence: Home Review of Systems General: Weakness, Malaise Respiratory: Shortness of Breath Physical Examination Temp Pulse Resp BP Pulse Ox 99 F 94 H 22 H 114/89 06/24/20 04:32 06/24/20 09:22 06/24/20 09:22 06/24/20 09:22 General: Alert, Oriented x3 Neck: Supple Respiratory: Clear to auscultation bilaterally Cardiovascular: No edema, Regular rate/rhythm, Normal S1 S2 Gastrointestinal: Normal bowel sounds, Soft and benign Laboratory Data (last 24 hrs) 06/24/20 04:35: PT 15.5 H, INR 1.32 06/24/20 04:35: WBC 13.0 H, Hgb 13.8, Hct 41.7, Plt Count 347 06/24/20 04:35: Sodium 138, Potassium 3.9, BUN 14, Creatinine 1.06, Glucose 107 H, Magnesium 2.2, Total Bilirubin 0.5, AST 36, ALT 32, Alkaline Phosphatase 62 06/24/20 04:34: PT Cancelled, INR Cancelled 06/24/20 04:34: WBC Cancelled, Hgb Cancelled, Hct Cancelled, Plt Count Cancelled 06/24/20 04:34: Sodium Cancelled, Potassium Cancelled, BUN Cancelled, Creatinine Cancelled, Glucose Cancelled, Magnesium Cancelled, Total Bilirubin Cancelled, AST Cancelled, ALT Cancelled, Alkaline Phosphatase Cancelled - Problems (1) Pneumonia due to human coronavirus Current Visit: Yes Status: Acute Plan: Patient is 45 years of age admitted with agrawal virus pneumonia he is doing much better CT scan characteristic of agrawal virus pneumonia is got bilateral ground-glass changes continue with IV steroids multi vitamin supplementation was setup for home O2 possible discharge tomorrow fully anti coagulated social work to set up home O2 patient's oxygenation is satisfactory on 2 L of nasal cannula oxygen
[2020-06-24] MEDS: APIXABAN 5 MG TABLET PO SCH (12:01)
[2020-06-24] MEDS: THIAMINE HCL 100 MG TABLET PO SCH (12:02)
[2020-06-24] MEDS: FAMOTIDINE 20 MG/2 ML VIAL IV SCH (12:02)
[2020-06-24 12:43] LABS: Ferritin 1239.9 ng/mL (26-388)
[2020-06-24] MEDS: VITAMIN D 1000 UNIT TAB PO SCH (16:18)
[2020-06-24] MEDS ORDERED: Remdesivir 200 MG in NA CHLORIDE 0.9% 250 ML IV ONE (17:11)
[2020-06-24] MEDS ORDERED: CEFTRIAXONE/SWI 1gm 1 GM/10 ML SYR IV SCH (21:00)
[2020-06-24] MEDS: MELATONIN 3 MG TABLET PO SCH (21:34)
[2020-06-24] MEDS: ATORVASTATIN 40 MG TAB PO SCH (21:34)
[2020-06-25 05:40] LABS: Absolute Lymphocytes (CBC) 0.9 K/uL (0.7-4.9); Basophils % 0.3 % (0-1.3); Hematocrit 42.1 % (39.6-49.0); Lymphocytes % 8.2 % (15.3-44.8); MPV 8.1 fL (7.6-11.3); RBC Red Blood Cell Count 4.98 M/uL (4.33-5.43)
[2020-06-25 05:51] LABS: ALT/SGPT 31 U/L (12-78); AST/SGOT 33 U/L (15-37); Albumin 2.9 g/dL (3.4-5.0); Alkaline Phosphatase 65 U/L (45-117); BUN Blood Urea Nitrogen 18 mg/dL (7-18); Bicarbonate 26 mmol/L (21-32); Bilirubin Direct 0.1 mg/dL (0-0.2); Bilirubin Total 0.6 mg/dL (0.2-1.0); Glucose Level 129 mg/dL (74-106); HDL Cholesterol 52 mg/dL (40-60); LDL Cholesterol, Calculated 109 (<130); Magnesium 2.5 mg/dL (1.8-2.4); NT PRO-BNP 113 pg/mL (<125); Phosphorus 3.9 mg/dL (2.5-4.9); Potassium 4.5 mmol/L (3.5-5.1); Sodium Level 139 mmol/L (136-145)
[2020-06-25 05:57] LABS: C-Reactive Protein 81.7 mg/L (<3.00); Ferritin 1307.5 ng/mL (26-388)
--- NOTE | 2020-06-25 06:30 | P.HP ---
Certification for Inpatient Patient admitted to: Inpatient With expected LOS: >2 Midnights Patient will require the following post-hospital care: None Practitioner: I am a practitioner with admitting privileges, knowledge of patient current condition, hospital course, and medical plan of care. Services: Services provided to patient in accordance with Admission requirements found in Title 42 Section 412.3 of the Code of Federal Regulations Patient History Date of Service: 06/24/20 Reason for admission: Shortness of breath History of Present Illness: patient is a 45-year-old gentleman who came to the hospital with shortness of breath. Patient was recently at [facility] for 24 hours for treatment of COVID-19 pneumonia. Patient was sent home on steroids, azithromycin, eliquis, and multivitamins. Patient apparently had done well and was discharged home. However, over the last 48 hours patient has declined. He states he was never really feeling that much better and was short of breath all time. He has been more tachypneic at home. He thinks he got the infection from his daughter who had a cough and was congested the other day. She was never tested. His was tested and she was negative. In the emergency room, he had a chest x-ray and CT scan which showed wide infiltrates. Patient is currently on Eliquis along with IV steroids and antibiotics. Patient with diffuse infiltrates on his CT scan. We will monitor him closely in the hospital. Allergies No Known Allergies Allergy (Unverified 06/24/20 09:29) Home Medications: Atorvastatin Calcium [Lipitor] 40 mg PO BEDTIME 06/24/20 - Past Medical/Surgical History Has patient received pneumonia vaccine in the past: No Diabetic: No -: prediabetic -: hypercholesterol -: r eye surgery - Family History Mother Medical History: Diabetes, Blood disorders - Social History Smoking Status: Never smoker Alcohol use: Yes CD- Drugs: No Caffeine use: Yes Place of Residence: Home Review of Systems 10-point ROS is otherwise unremarkable Physical Examination - Vital Signs Temperature: 97.3 F Blood Pressure: 150/89 Pulse: 77 Respirations: 21 Pulse Ox (%): 88 - Physical Exam General: Alert, In no apparent distress, Oriented x3 HEENT: Atraumatic, PERRLA, Mucous membr. moist/pink, EOMI, Sclerae nonicteric Neck: Supple, 2+ carotid pulse no bruit, No LAD, Without JVD or thyroid abnormality Respiratory: Diminished, Rhonchi/gurgles Cardiovascular: Regular rate/rhythm, Normal S1 S2, No murmurs Gastrointestinal: Normal bowel sounds, Soft and benign, Non-distended, No tenderness Musculoskeletal: No clubbing, No swelling, No tenderness Integumentary: No rashes Neurological: Normal gait, Normal speech, Normal strength at 5/5 x4 extr, Normal tone, Sensation intact, Cranial nerves 3-12 intact, Normal affect Lymphatics: No axilla or inguinal lymphadenopathy Assessment & Plan - Problems (Diagnosis) (1) Pneumonia due to COVID-19 virus Current Visit: Yes Status: Acute (2) Hypoxemia Current Visit: Yes Status: Acute - Plan Plan: 1. Consider remdesivir/plasma treatment 2. IV steroids 3. Zithromycin 250 mg IVPB daily 4. Eliquis 5. O2 per protocol; 6. Check labs including ferritin, CRP, D-dimer, lactic acid, LDH, procalcitonin 7. Pulmonary consultation 8. GI prophylaxis Discharge Plan: Home Plan to discharge in: Greater than 2 days - Advance Directives Does patient have a Living Will: No Does patient have a Durable POA for Healthcare: No - Code Status/Comfort Care Code Status Assessed: Yes Code Status: Full Code Critical Care: No Time Spent Managing PTS Care (In Minutes): 50
[2020-06-25] MEDS: THIAMINE HCL 100 MG TABLET PO SCH (08:37)
[2020-06-25] MEDS: APIXABAN 5 MG TABLET PO SCH ×2 (08:38→19:47)
[2020-06-25] MEDS: VITAMIN D 1000 UNIT TAB PO SCH (08:38)
[2020-06-25] MEDS: METHYLPREDNISOLONE 40 MG INJ IV SCH ×2 (08:38→19:47)
[2020-06-25] MEDS: FAMOTIDINE 20 MG/2 ML VIAL IV SCH (08:38)
[2020-06-25] MEDS: FUROSEMIDE 20 MG/ 2ML VIAL IV SCH (08:48)
[2020-06-25] MEDS ORDERED: AZITHROMYCIN IV 500 MG in NA CHLORIDE 0.9% 250 ML IVPB SCH (09:00)
[2020-06-25] MEDS ORDERED: Remdesivir 200 MG in NA CHLORIDE 0.9% 250 ML IV ONE (09:00)
[2020-06-25] MEDS ORDERED: VITAMIN D 1000 UNIT TAB PO SCH (09:00)
[2020-06-25] MEDS ORDERED: Remdesivir 100 MG in NA CHLORIDE 0.9% 250 ML IV SCH (09:00)
[2020-06-25] MEDS ORDERED: THIAMINE HCL 100 MG TABLET PO SCH (09:00)
--- NOTE | 2020-06-25 11:11 | P.PN ---
Subjective Date of Service: 06/25/20 Primary Care Provider: Dr. Moe([facility]) Chief Complaint: Shortness of breath Subjective: Other (Patient still reports some shortness of breath with exertion. Currently on 2-3 L per nasal cannula.) Physical Examination - Vital Signs Temperature: 97.3 F Blood Pressure: 134/94 Pulse: 82 Respirations: 31 Pulse Ox (%): 95 - Physical Exam General: Alert, In no apparent distress, Oriented x3, Cooperative HEENT: Atraumatic Neck: Supple Respiratory: Diminished (To the bases bilateral) Cardiovascular: Normal pulses, Regular rate/rhythm Gastrointestinal: Normal bowel sounds, No tenderness, No masses, No rebound, No guarding Musculoskeletal: No erythema, No tenderness, No warmth Neurological: Normal speech, Normal strength at 5/5 x4 extr, Normal tone, Normal affect - Studies Medications List Reviewed: Yes Assessment & Plan Discharge Plan: Home Plan to discharge in: Greater than 2 days Physician Review Additional Text: Impression: Acute respiratory failure with hypoxia secondary to bilateral COVID 19 pneumonia Hyperlipidemia Obesity, BMI 31 Plan: Acute respiratory failure with hypoxia secondary to bilateral COVID 19 pneumonia: Patient remains on a oxygen at 3 L per nasal cannula. Continue IV Solu-Medrol. Patient also on other [id number], thiamine and melatonin. Patient also on IV Lasix. Patient on Eliquis due to risk factors pulmonary embolism/DVT and elevated D-dimer. Case discussed with pulmonology. Patient may benefit with Remdesivir IV. This was discussed in detail with the patient. Patient understands that this was recently FDA approved. Side effects include elevated liver function. Patient does not meet inclusion criteria for implementation of Remdesivir. This was discussed in detail with pharmacy and pulmonology. Pulmonology to discuss case further with infectious disease specialist at [facility]. If both agree then inclusion criteria can be over ridden to provide Remdesivir IV. If started will need to monitor CMP closely. Will provide incentive spirometer. Continue to monitor closely. Continue to wean off oxygen. Plan of care discussed with patient and . Both agree with plan of care. Will continue to reassess. Continue to monitor electrolytes closely. Hyperlipidemia: Continue home medication Obesity, BMI 31: Will address lifestyle modification education. Time Spent Managing Pts Care (In Minutes): 55
--- NOTE | 2020-06-25 12:44 | RAD REPORT ---
EXAM DESCRIPTION: CT - Chest For Pe Angio - 06/24/2020 6:56 am CLINICAL HISTORY: The patient is 45 years old and is Male; Cough;Dyspnea;PE TECHNIQUE: Axial computed tomographic angiography images of the chest with intravenous contrast. S agittal and coronal reformatted images were created and reviewed. This CT exam was performed using one or more of the following dose reduction techniques: automated exposure control, adjustment of t he mA and/or kV according to patient size, and/or use of iterative reconstruction technique. MIP re constructed images were created and reviewed. COMPARISON: No relevant prior studies available. FINDINGS: Pulmonary arteries: No PE identified. Aorta: No acute findings. No thoracic aortic aneurysm. Lungs: Bilateral multilobar groundglass opacities. Pleural space: No pleural effusion or pneumothorax. Heart: Mild cardiomegaly. No significant pericardial fluid. No evidence of RV dysfunction. Mediastinum: Small hiatal hernia. Bones/joints: No acute fracture. No dislocation. Soft tissues: Unremarkable. Lymph nodes: Mildly enlarged subcarinal lymph nodes. IMPRESSION: 1. No PE identified. 2. Bilateral multilobar groundglass opacities. Imaging features can be seen with viral pneumonia, t delmy are nonspecific and can occur with a variety of infectious and noninfectious processes. PneInd 3. Small hiatal hernia. Electronically signed by: Lisa Bernard MD 06/24/2020 5:40 AM CDT Due to temporary technical issues with the PACS/Fluency reporting system, reports are being signed by the in house radiologist without review as a courtesy to ensure prompt reporting. The interpreting r adiologist is fully responsible for the content of the report.
--- NOTE | 2020-06-25 12:44 | P.PN ---
Subjective Date of Service: 06/25/20 Primary Care Provider: Dr. Moe([facility]) Chief Complaint: Respiratory failure from arriaga virus Subjective: Improving (Patient is doing well is a little short of breath a little hypoxic last night had to be placed on oxygen) Review of Systems Unremarkable Physical Examination - Vital Signs Temperature: 97.3 F Blood Pressure: 134/94 Pulse: 82 Respirations: 31 Pulse Ox (%): 95 - Physical Exam General: Alert, Oriented x3 Respiratory: Clear to auscultation bilaterally Cardiovascular: No edema, Regular rate/rhythm - Studies Medications List Reviewed: Yes Assessment & Plan - Problems (Diagnosis) (1) Pneumonia due to human coronavirus Current Visit: Yes Status: Acute Plan: Patient is doing well is a little hypoxic according to the pharmacist that he will not qualify for Remdesvir CRP is declining continue with steroids anticoagulation
[2020-06-25] MEDS: ATORVASTATIN 40 MG TAB PO SCH (19:47)
[2020-06-25] MEDS: MELATONIN 3 MG TABLET PO SCH (19:47)
[2020-06-26 05:19] LABS: Absolute Lymphocytes (CBC) 1.2 K/uL (0.7-4.9); Basophils % 0.4 % (0-1.3); Hematocrit 43.3 % (39.6-49.0); Lymphocytes % 9.1 % (15.3-44.8); MPV 7.8 fL (7.6-11.3); RBC Red Blood Cell Count 5.15 M/uL (4.33-5.43)
[2020-06-26 05:33] LABS: ALT/SGPT 37 U/L (12-78); AST/SGOT 34 U/L (15-37); Alkaline Phosphatase 64 U/L (45-117); BUN Blood Urea Nitrogen 23 mg/dL (7-18); Bicarbonate 26 mmol/L (21-32); Bilirubin Direct 0.1 mg/dL (0-0.2); Bilirubin Total 0.5 mg/dL (0.2-1.0); Ferritin 1303.6 ng/mL (26-388); Glucose Level 122 mg/dL (74-106); Potassium 4.4 mmol/L (3.5-5.1); Protein, Total 8.1 g/dL (6.4-8.2); Sodium Level 137 mmol/L (136-145)
--- NOTE | 2020-06-26 07:45 | P.PN ---
Subjective Date of Service: 06/26/20 Primary Care Provider: Dr. Moe([facility]) Chief Complaint: Respiratory failure from arriaga virus Subjective: Improving, Other (Patient reports improvement. Still on oxygen. Currently at 3 L per nasal cannula.) Physical Examination - Vital Signs Temperature: 97 F Blood Pressure: 117/89 Pulse: 75 Respirations: 30 Pulse Ox (%): 97 - Physical Exam General: Alert, In no apparent distress, Oriented x3, Cooperative HEENT: Atraumatic Neck: Supple Respiratory: Diminished (Bilateral) Cardiovascular: Normal pulses, Regular rate/rhythm Neurological: Normal speech, Normal strength at 5/5 x4 extr, Normal tone, Normal affect - Studies Medications List Reviewed: Yes Assessment & Plan Discharge Plan: Home Plan to discharge in: 24 Hours Physician Review Additional Text: Impression: Acute respiratory failure with hypoxia secondary to bilateral COVID 19 pneumonia Hyperlipidemia Obesity, BMI 31 Plan: Acute respiratory failure with hypoxia secondary to bilateral COVID 19 pneumonia: Patient reports improvement this morning but still slightly short of breath with exertion. Patient remains on 3 L per nasal cannula. Continue to try to wean off oxygen. CRP improved. Continue IV Solu-Medrol. Patient also on other [id number], thiamine and melatonin. Patient also on IV Lasix. Patient on Eliquis due to risk factors pulmonary embolism/DVT and elevated D-dimer. Case discussed with infectious disease at [facility]. No need for Remdesivir. Infectious Disease reports very unlikely to be beneficial at this time. Encourage incentive spirometer. Will continue to try to wean off oxygen. Encourage ambulation. Oxygen has been arranged for outpatient. Anticipate improvement over the next 24 hr. Likely discharge tomorrow. Will discuss further with pulmonology. Will also discuss with his about plan of care. Hyperlipidemia: Continue home medication Obesity, BMI 31: Will address lifestyle modification education. Time Spent Managing Pts Care (In Minutes): 55
[2020-06-26] MEDS: FUROSEMIDE 20 MG/ 2ML VIAL IV SCH (08:57)
[2020-06-26] MEDS: THIAMINE HCL 100 MG TABLET PO SCH (08:57)
[2020-06-26] MEDS: APIXABAN 5 MG TABLET PO SCH ×2 (08:57→20:24)
[2020-06-26] MEDS: FAMOTIDINE 20 MG/2 ML VIAL IV SCH (08:58)
[2020-06-26] MEDS: METHYLPREDNISOLONE 125 MG INJ IV SCH ×2 (08:58→20:23)
[2020-06-26] MEDS: VITAMIN D 1000 UNIT TAB PO SCH (09:00)
[2020-06-26] MEDS ORDERED: Remdesivir 100 MG in NA CHLORIDE 0.9% 250 ML IV SCH (09:00)
--- NOTE | 2020-06-26 10:11 | EKG ---
Test Date: 2020-06-24 Test Time: 04:26:42 Microbiology Lab Manager: RV MEASUREMENT RESULTS: Intervals: Rate: 88 OR: 146 QRSD: 76 QT: 358 QTc: 433 [place]: P: 34 OR: 146 QRS: 7 T: -6 INTERPRETIVE STATEMENTS: Normal sinus rhythm Minimal voltage criteria for LVH, may be normal variant Borderline ECG No previous ECG available for comparison Electronically Signed On 06-26-20 10:07:00 CDT by Ankit Baugh
[2020-06-26] MEDS: ATORVASTATIN 40 MG TAB PO SCH (20:24)
[2020-06-26] MEDS: MELATONIN 3 MG TABLET PO SCH (20:24)
[2020-06-27 05:16] LABS: Absolute Lymphocytes (CBC) 1.1 K/uL (0.7-4.9); Basophils % 0.6 % (0-1.3); Hematocrit 50.1 % (39.6-49.0); Lymphocytes % 8.9 % (15.3-44.8); RBC Red Blood Cell Count 5.83 M/uL (4.33-5.43)
[2020-06-27 05:20] LABS: ALT/SGPT 55 U/L (12-78); AST/SGOT 41 U/L (15-37); Albumin 3.3 g/dL (3.4-5.0); Alkaline Phosphatase 73 U/L (45-117); BUN Blood Urea Nitrogen 23 mg/dL (7-18); Bicarbonate 27 mmol/L (21-32); Bilirubin Direct 0.1 mg/dL (0-0.2); Bilirubin Total 0.7 mg/dL (0.2-1.0); Ferritin 1397.1 ng/mL (26-388); Glucose Level 131 mg/dL (74-106); Potassium 4.8 mmol/L (3.5-5.1); Protein, Total 8.9 g/dL (6.4-8.2); Sodium Level 135 mmol/L (136-145)
[2020-06-27 08:30] VITALS: TEMP 96.3
[2020-06-27] MEDS: METHYLPREDNISOLONE 125 MG INJ IV SCH (09:24)
[2020-06-27] MEDS: FUROSEMIDE 20 MG/ 2ML VIAL IV SCH (09:25)
[2020-06-27] MEDS: APIXABAN 5 MG TABLET PO SCH (09:25)
[2020-06-27] MEDS: VITAMIN D 1000 UNIT TAB PO SCH (09:25)
[2020-06-27] MEDS: FAMOTIDINE 20 MG/2 ML VIAL IV SCH (09:25)
[2020-06-27] MEDS: THIAMINE HCL 100 MG TABLET PO SCH (09:26)
--- NOTE | 2020-06-27 10:42 | P.PN ---
Subjective Date of Service: 06/26/20 Primary Care Provider: Dr. Moe([facility]) Chief Complaint: Respiratory failure from arriaga virus Subjective: Improving (Patient is doing well still short of breath requiring some oxygen is been no progression) Review of Systems Unremarkable Physical Examination - Vital Signs Temperature: 96.3 F Blood Pressure: 119/92 Pulse: 82 Respirations: 24 Pulse Ox (%): 93 (Deferred due to arriaga virus) - Studies Medications List Reviewed: Yes Assessment & Plan - Problems (Diagnosis) (1) Pneumonia due to human coronavirus Current Visit: Yes Status: Acute Plan: P patient is clinically improving CRP is declining continue with present treatment plan for discharge a.m. on nasal cannula oxygen 4 L continue with prednisone
--- NOTE | 2020-06-27 10:44 | P.PN ---
Subjective Date of Service: 06/27/20 Primary Care Provider: Dr. Moe([facility]) Chief Complaint: Respiratory failure from arriaga virus Subjective: Improving (Doing well ambulating requiring oxygen) Review of Systems Unremarkable Physical Examination - Vital Signs Temperature: 96.3 F Blood Pressure: 119/92 Pulse: 82 Respirations: 24 Pulse Ox (%): 93 (Deferred due to arriaga virus) - Studies Medications List Reviewed: Yes Assessment & Plan - Problems (Diagnosis) (1) Pneumonia due to human coronavirus Current Visit: Yes Status: Acute Plan: Patient is clinically improving CRP is not less than 20 vital signs all stable plan to discharge on prednisone 20 b.i.d. for a week and then 10 b.i.d. in for a telephone visit next week continue with multi vitamins supplementation full anticoagulation
--- NOTE | 2020-06-27 11:06 | P.DS ---
Admission Date: 06/24/20 Discharge Date: 06/27/20 Primary Care Provider: Dr. Moe([facility]) Disposition: ROUTINE DISCHARGE Discharge Condition: GOOD Reason for Admission: Respiratory failure from arriaga virus Consultations: Pulmonary-Dr. Torres Procedures: CT scan: COMPARISON: No relevant prior studies available. FINDINGS: Pulmonary arteries: No PE identified. Aorta: No acute findings. No thoracic aortic aneurysm. Lungs: Bilateral multilobar groundglass opacities. Pleural space: No pleural effusion or pneumothorax. Heart: Mild cardiomegaly. No significant pericardial fluid. No evidence of RV dysfunction. Mediastinum: Small hiatal hernia. Bones/joints: No acute fracture. No dislocation. Soft tissues: Unremarkable. Lymph nodes: Mildly enlarged subcarinal lymph nodes. IMPRESSION: 1. No PE identified. 2. Bilateral multilobar groundglass opacities. Imaging features can be seen with viral pneumonia, though are nonspecific and can occur with a variety of infectious and noninfectious processes. 3. Small hiatal hernia. Medical Problem List: Acute respiratory failure with hypoxia secondary to bilateral COVID 19 pneumonia Hyperlipidemia Obesity, BMI 31 Brief History of Present Illness: 45-year-old male presented to the emergency room with increased shortness of breath. Patient had been seen and hospitalized at [facility] for COVID 19 pneumonia. He was found to be positive several weeks ago. The patient was monitored overnight and discharge. He was sent home with steroids, Zithromax, Eliquis and multi vitamins. His condition did not improve. Over the next 48 hr his condition continued to decline. Patient had increasing cough, shortness of breath. Patient was reassessed in the emergency room. Patient found to have worsening symptoms. Patient admitted for acute respiratory failure with hypoxia related to coal with pneumonia. Hospital Course: Patient was admitted for acute respiratory failure with hypoxia secondary to bilateral COVID 19 pneumonia. The patient had been treated recently at [facility] and discharge within 24 hr. His condition worsened which prompted his evaluation in the emergency room. CT scan revealed bilateral pneumonia but no pulmonary embolism was found. The patient was admitted to the COVID ICU unit. Patient was started on IV steroids, oxygen and supplementation. The patient has done well. Patient did not require Remdesivir after discussion with pulmonology and infectious disease. At discharge patient remains on oxygen at 3 liters/minute. Patient able to ambulate appropriately. CRP has significantly improved. Other inflammatory markers also improved. At discharge patient will continue with home oxygen to maintain sats above 93%. Patient currently on 3 L per nasal cannula. Patient is to monitor his oxygen saturations at home. Recommend to maintain O2 saturations at least above 90%. Further titration of oxygen can be done by pulmonology. At discharge the patient will continue with prednisone 20 mg twice daily, Eliquis 5 mg 1 pill twice daily, melatonin 3 mg at bedtime, thiamine 100 mg daily, and vitamin-D 2000 units daily.Patient will continue with incentive spirometer several times during the day. Patient to slowly increase activity but to remain isolated. Recommend follow up with pulmonology within 1 week. Further evaluation and recommendations will be done with pulmonology at that time. Patient is to remain in isolation for at least 10 days up to 20 days depending on his symptoms. Patient will get further guidance on this by pulmonology. CDC guidelines for COVID will be provided. Patient will need to continue practicing social distancing and facemask use at home. Instructions given to the patient as well as his . Patient with history of hyperlipidemia. At discharge patient may continue with his current medication of Lipitor 40 mg daily. Vital Signs/Physical Exam: Temp Pulse Resp BP Pulse Ox 96.3 F L 82 24 H 119/92 H 93 06/27/20 10:44 06/27/20 10:44 06/27/20 10:44 06/27/20 10:44 06/27/20 10:44 General: Alert, In no apparent distress, Oriented x3, Cooperative HEENT: Atraumatic Neck: Supple Respiratory: Other (No resp. distress) Cardiovascular: Normal pulses Neurological: Normal speech, Normal strength at 5/5 x4 extr, Normal tone, Normal affect Laboratory Data at Discharge: WBC 12.4 K/uL (4.3-10.9) H 06/27/20 04:40 Hgb 16.4 g/dL (13.6-17.9) 06/27/20 04:40 Hct 50.1 % (39.6-49.0) H D 06/27/20 04:40 Plt Count 479 K/uL (152-406) H 06/27/20 04:40 PT 15.5 SECONDS (9.5-12.5) H 06/24/20 04:35 INR 1.32 06/24/20 04:35 Sodium 135 mmol/L (136-145) L 06/27/20 04:40 Potassium 4.8 mmol/L (3.5-5.1) 06/27/20 04:40 BUN 23 mg/dL (7-18) H 06/27/20 04:40 Creatinine 1.01 mg/dL (0.55-1.3) 06/27/20 04:40 Glucose 131 mg/dL (74-106) H 06/27/20 04:40 Phosphorus 3.9 mg/dL (2.5-4.9) 06/25/20 05:10 Magnesium 2.5 mg/dL (1.8-2.4) H 06/25/20 05:10 Total Bilirubin 0.7 mg/dL (0.2-1.0) 06/27/20 04:40 AST 41 U/L (15-37) H 06/27/20 04:40 ALT 55 U/L (12-78) 06/27/20 04:40 Alkaline Phosphatase 73 U/L (45-117) 06/27/20 04:40 Triglycerides 144 mg/dL (<150) 06/25/20 05:10 Cholesterol 190 mg/dL (<200) 06/25/20 05:10 HDL Cholesterol 52 mg/dL (40-60) 06/25/20 05:10 Cholesterol/HDL Ratio 3.65 06/25/20 05:10 Home Medications: Atorvastatin Calcium [Lipitor] 40 mg PO BEDTIME 06/24/20 Apixaban [Eliquis] 5 mg PO BID #60 tablet 06/27/20 Cholecalciferol (Vitamin D3) [Vitamin D 1000 Iu Tab*] 2,000 unit PO DAILY #60 tab 06/27/20 Melatonin [Melatonin*] 3 mg PO BEDTIME #30 tablet 06/27/20 Thiamine HCl [Vitamin B-1*] 100 mg PO DAILY #30 tablet 06/27/20 predniSONE [Prednisone*] 20 mg PO BID #28 tab 06/27/20 New Medications: Apixaban [Eliquis] 5 mg PO BID #60 tablet Melatonin [Melatonin*] 3 mg PO BEDTIME #30 tablet predniSONE [Prednisone*] 20 mg PO BID #28 tab Thiamine HCl [Vitamin B-1*] 100 mg PO DAILY #30 tablet Cholecalciferol (Vitamin D3) [Vitamin D 1000 Iu Tab*] 2,000 unit PO DAILY #60 tab Patient Discharge Instructions: 1. Follow up with PCP in 1 week to follow up this hospitalization. 2. Patient was admitted for acute respiratory failure with hypoxia secondary to bilateral COVID 19 pneumonia. The patient had been treated recently at [facility] and discharge within 24 hr. His condition worsened which prompted his evaluation in the emergency room. CT scan revealed bilateral pneumonia but no pulmonary embolism was found. The patient was admitted to the COVID ICU unit. Patient was started on IV steroids, oxygen and supplementation. The patient has done well. Patient did not require Remdesivir after discussion with pulmonology and infectious disease. At discharge patient remains on oxygen at 3 liters/minute. Patient able to ambulate appropriately. CRP has significantly improved. Other inflammatory markers also improved. At discharge patient will continue with home oxygen to maintain sats above 93%. Patient currently on 3 L per nasal cannula. Patient is to monitor his oxygen saturations at home. Recommend to maintain O2 saturations at least above 90%. Further titration of oxygen can be done by pulmonology. At discharge the patient will continue with prednisone 20 mg twice daily, Eliquis 5 mg 1 pill twice daily, melatonin 3 mg at bedtime, thiamine 100 mg daily, and vitamin-D 2000 units daily.Patient will continue with incentive spirometer several times during the day. Patient to slowly increase activity but to remain isolated. Recommend follow up with pulmonology within 1 week. Further evaluation and recommendations will be done with pulmonology at that time. Patient is to remain in isolation for at least 10 days up to 20 days depending on his symptoms. Patient will get further guidance on this by pulmonology. CDC guidelines for COVID will be provided. Patient will need to continue practicing social distancing and facemask use at home. Instructions given to the patient as well as his . Education on Eliquis will be provided. 3. Patient with history of hyperlipidemia. At discharge patient may continue with his current medication of Lipitor 40 mg daily. Diet: AHA Activity: Ad myles Followup: NONE,NONE [Primary Care Provider] - Time spent managing pt's care (in minutes): 55
[2020-06-27 11:29] VITALS: BP 118/88
[2020-06-27 11:35] VITALS: O2SAT 97
[2020-06-27] MEDS ORDERED: METHYLPREDNISOLONE 40 MG INJ IV SCH (21:00)
== END 2020-06-27 12:45 | disposition home or self-care (01) | DRG 177 ==
LOC: ER 04:20 → ERHOLD 06:33 → 3RD-ICU 09:32
PROVIDERS: ADMIT Hospitalist; ATTEND Family Medicine
DX: U07.1 COVID-19 (principal); J12.89 Other viral pneumonia; J96.01 Acute respiratory failure with hypoxia; E78.5 Hyperlipidemia, unspecified; E66.9 Obesity, unspecified; Z68.31 Body mass index [BMI] 31.0-31.9, adult; Z97.0 Presence of artificial eye; Z79.899 Other long term (current) drug therapy; Z79.01 Long term (current) use of anticoagulants; Z79.52 Long term (current) use of systemic steroids
CPT/HCPCS: 36415; 71045; 71275; 80048; 80053; 80061; 80076; 82248; 82565; 82728; 83605; 83615; 83735; 83880; 84100; 84145; 84484; 85025; 85379; 85610; 86140; 87040; 93005; 94010; 94760; 96361; 96374; 96375; 99285; J0456; J0696; J1100; J1940; J2920; J2930; J7030; J7050; Q9967; U0003